=== PATIENT | female | born 2000 | race Caucasian/White ===

== ENCOUNTER 2020-01-03 18:13 | Emergency (ER) | payer MEDICAID, SELFPAY ==
[2020-01-03 18:25] VITALS: BP 126/75; PULSE 98; RESP 18; TEMP 37.3; O2SAT 99; BMI 23.7
[2020-01-03 18:49] LABS: Basophils # 0.1 10^3/uL (0.0-0.1); Basophils % 0.5 %; Eosinophils # 0.1 10^3/uL (0.0-0.8); Hematocrit 42.8 % (37.0-47.0); Lymphocytes # 2.6 10^3/uL (0.8-4.8); Lymphocytes % 23.9 %; Mean Corpuscular HGB Conc 32.7 g/dL (30.0-36.0); Mean Corpuscular Hemoglobin 28.5 pg (28.0-34.0); Mean Platelet Volume 10.5 fL (7.4-10.4); Monocytes # 0.7 10^3/uL (0.2-0.9); Monocytes % 6.1 %; Neutrophils # 7.45 10^3/uL (1.8-7.7); Neutrophils % 68.3 %; Nucleated Red Blood Cells % 0 %; Platelet Count 289 10^3/cmm (130-400); Red Blood Count 4.92 10^6/uL (4.1-5.3); Red Cell Distribution Width 13.2 % (12.1-15.1); White Blood Count 10.9 10^3/uL (4.0-10.0)
[2020-01-03] MEDS: sodium chloride 0.9% 1,000 ML 999 ML IV (18:59)
--- NOTE | 2020-01-03 19:01 | US_ITS ---
WS: [id number] ULTRASOUND EARLY TECHNIQUE: Transabdominal sonography of the pelvis was performed. Followed by transvaginal sonography to better evaluate the uterus and ovaries. CLINICAL INFORMATION: vaginal bleeding, preg LMP: 10/23/2019 Beta hCG: Unknown. COMPARISON: None. FINDINGS: UTERUS AND GESTATIONAL SAC Intrauterine gestations: Estimated gestational age: 7w0d Estimated delivery August 21, 2020 Yolk sac present [place] rump length (CRL): 1.0 cm. heart motion: 167 BPM. Subchorionic hemorrhage: None. OVARIES Right ovary: Normal. Left ovary: Normal. FREE FLUID None. US/US OB <= 14 weeks fetus [id number] IMPRESSION: 1. Single live intrauterine . 2. Estimated gestational age; 7w0d. Estimated delivery August 21, 2020 3. Normal adnexa
[2020-01-03 19:09] LABS: Add Urine Microscopic? YES; Bilirubin Urine Neg (NEGATIVE); Blood Urine Neg (Negative); Glucose Urine UA Norm (Normal); Ketones Urine Negative (Negative); Leukocyte Esterase Urine 2+ (Negative); Nitrate Urine Negative (Negative); Protein Urine Neg (Negative); Urine Color Yellow (Yellow); Urobilinogen Urine Norm (Negative); pH Urine 7 (5-7)
[2020-01-03 19:11] LABS: Bacteria Urine 2+; Mucus Urine 1+; Squamous Epithelial Cell Urine 15-25 (0-5); WBC Urine 15-25 /hpf (0-5)
[2020-01-03 19:12] LABS: Add Urine Culture? No
[2020-01-03 19:15] LABS: Alanine Aminotransferase 13 U/L (0-33); Albumin Level 4.1 g/dL (3.5-5.2); Alkaline Phosphatase 65 IU/L (35-105); Anion Gap 13.6 (5-19); Aspartate Amino Transferase 13 U/L (0-32); Blood Urea Nitrogen 7 mg/dL (6-20); Calcium 8.6 mg/dL (8.5-10.5); Carbon Dioxide 22 mmol/L (22-29); Chloride 100 mmol/L (98-107); Globulin 3.3 g/dL (1.3-4.6); Glomerular Filtration Rate 126.2 mL/min (90-130); Glucose 115 mg/dL (65-115); Osmolality Calculated 271 mOsm/kg (285-295); Potassium 3.6 mmol/L (3.5-5.1); Sodium 132 mmol/L (136-145); Total Bilirubin 0.2 mg/dL (0.15-1.2); Total Protein 7.4 g/dL (6.6-8.7)
--- NOTE | 2020-01-03 19:32 | W.ED.ABDPA2 ---
HPI - Abdominal Pain General: Chief Complaint: Abdominal Pain Stated Complaint: 12 weeks preg/cramping and bleeding Time Seen by Provider: 01/03/20 18:27 History of Present Illness: HPI narrative: 19-year-old female, believes she is 12 weeks , states she has been cramping for a week or so. She has a G3. She had cramping with her first , so she did not think much of it. She then began to bleed just a bit tonight. She passed 1 small clot with some small amounts of bright blood. Not bleeding currently. MD elicited complaint: abdominal pain Location: Pelvis and Other (Back) Severity: moderate Quality: cramping Radiation: none Migration to: no migration Relieving factors: nothing Associated Symptoms: Reports nausea; Denies dysuria, fever(s), loose stools and vomiting Related Data: Date of Last Menstrual Period: 11/10/19 Review of Systems Const: Denies: fever(s) Eyes: Denies: change in vision or blurry vision ENMT: Denies: swelling of lips/tongue, bleeding gums, change in hearing, post nasal drip or sinus pain Card: Denies: chest pain, palpitations or irregular heart rhythm Resp: Denies: dyspnea, productive cough, non-productive cough or wheezing GI: Reports: nausea; Denies: vomiting : Denies: dysuria Musc: Reports: back pain; Denies: neck pain Skin/Breast: Denies: rash or erythema Neuro: Denies: headache(s), dizziness or vertigo Psych: Denies: anxiety [facility] Female Reproductive History: Date of last menstrual period: 11/10/19 Physical Exam Const: GENERAL APPEARANCE: well developed ORIENTATION/CONSCIOUSNESS: Yes oriented to person, Yes oriented to place and Yes oriented to time HENMT: COMMON NORMALS: normocephalic, external ears normal and Normal external nose present HEAD & SCALP: normocephalic FACE & SINUS: normal facial exam NOSE: Normal external nose present and No nasal discharge present EXTERNAL EAR: Yes external ears normal Eye: COMMON NORMALS: Equal, round and reactive pupils present, EOMs intact bilaterally and conjunctivae normal EYELID: eyelids normal CONJUNCTIVA: Yes conjunctivae normal PUPIL: Yes Equal, round and reactive pupils present Neck/C-Spine: GENERAL: No tracheal deviation Chest: COMMONS NORMALS: normal inspection of the chest CHEST: No tenderness Resp: COMMON NORMALS: clear to auscultation bilaterally EFFORT & INSPECTION: No tachypneic, No respiratory distress, No retractions, No uses accessory muscles and No tracheal deviation AUSCULTATION: clear to auscultation bilaterally, no rhonchi, no wheezes and lung sounds not diminished Cardio: COMMON NORMALS: regular rate and regular rhythm RATE: regular rate RHYTHM: regular rhythm HEART SOUNDS: no murmurs PERIPHERAL PULSES: radial pulses present GI: INSPECTION: No abdominal distension AUSCULTATION: No Hyperactive bowel sounds present and No Hypoactive bowel sounds present PALPATION: No Tenderness to palpation present (GI), No Guarding due to palpation present (GI) and No Rigid due to palpation PERCUSSION: no dullness to percussion and no tympanic to percussion Neuro: SENSORIUM/ORIENTATION: Yes oriented to person, Yes oriented to place and Yes oriented to time Psych: COMMON NORMALS: mental status grossly normal Skin: COMMON NORMALS: no rashes or lesions noted GENERAL SKIN EXAM: no rashes or lesions noted Course Vital Signs: Vital signs: Vital Signs Temperature 99.1 F 01/03/20 18:25 Pulse Rate 72 01/03/20 20:53 Respiratory Rate 18 01/03/20 20:53 Blood Pressure 128/67 01/03/20 20:53 Pulse Oximetry 98 01/03/20 20:53 MDM - Abdominal Pain MDM Narrative: Medical decision making narrative: 19-year-old female with small amount of vaginal bleeding, and cramping. White blood cell count is 10.9. Hemoglobin 14. Other labs are benign. She is received a liter of fluid. Her urinalysis is slightly contaminated, but appears to show cystitis. She is given a gram of Rocephin. She will be treated for this. He has follow-up appointment with her mechanical systems engineer in 2 days. Lab Data: Labs: Lab Results 01/03/20 01/03/20 01/03/20 Range/Units 18:20 18:20 18:20 WBC 10.9 H (4.0-10.0) 10^3/ uL RBC 4.92 (4.1-5.3) 10^6/u L Hgb 14.0 (11.5-15.3) g/dL Hct 42.8 (37.0-47.0) % MCV 87.0 (81-99) fL MCH 28.5 (28.0-34.0) pg MCHC 32.7 (30.0-36.0) g/dL RDW 13.2 (12.1-15.1) % Plt Count 289 (130-400) 10^3/c mm MPV 10.5 H (7.4-10.4) fL Neut % (Auto) 68.3 % Lymph % (Auto) 23.9 % Arthur % (Auto) 6.1 % Eos % (Auto) 1.0 % Baso % (Auto) 0.5 % Neut # (Auto) 7.45 (1.8-7.7) 10^3/u L Lymph # (Auto) 2.6 (0.8-4.8) 10^3/u L Arthur # (Auto) 0.7 (0.2-0.9) 10^3/u L Eos # (Auto) 0.1 (0.0-0.8) 10^3/u L Baso # (Auto) 0.1 (0.0-0.1) 10^3/u L Nucleated RBC % (a uto) 0 % Nucleated RBCs # 0.0 /100WBC Sodium 132 L (136-145) mmol/L Potassium 3.6 (3.5-5.1) mmol/L Chloride 100 (98-107) mmol/L Carbon Dioxide 22 (22-29) mmol/L Anion Gap 13.6 (5-19) BUN 7 (6-20) mg/dL Creatinine 0.6 (0.5-0.9) mg/dL GFR Calculation 126.2 (90-130) mL/min Glucose 115 (65-115) mg/dL Calculated Osmolal ity 271 L (285-295) mOsm/k g Calcium 8.6 (8.5-10.5) mg/dL Total Bilirubin 0.2 (0.15-1.2) mg/dL AST 13 (0-32) U/L ALT 13 (0-33) U/L Alkaline Phosphata se 65 (35-105) IU/L Total Protein 7.4 (6.6-8.7) g/dL Albumin 4.1 (3.5-5.2) g/dL Globulin 3.3 (1.3-4.6) g/dL Ser , [place]Qnt 56397.00 mIU/mL Urine Color (Yellow) Urine Appearance (CLEAR) Urine pH (5-7) Ur Specific Gravit y (1.005-1.030) Urine Protein (Negative) Urine Glucose (UA) (Normal) Urine Ketones (Negative) Urine Blood (Negative) Urine Nitrate (Negative) Urine Bilirubin (NEGATIVE) Urine Urobilinogen (Negative) mg/dL Ur Leukocyte Yessenia ase (Negative) Urine RBC (0-2) /hpf Urine WBC (0-5) /hpf Ur Squamous Epith Cells (0-5) Amorphous Sediment Urine Bacteria (NONE) Urine Mucus Blood Type A Positive Rho(D) Type Positive 01/03/20 Range/Units 18:30 WBC (4.0-10.0) 10^3/ uL RBC (4.1-5.3) 10^6/u L Hgb (11.5-15.3) g/dL Hct (37.0-47.0) % MCV (81-99) fL MCH (28.0-34.0) pg MCHC (30.0-36.0) g/dL RDW (12.1-15.1) % Plt Count (130-400) 10^3/c mm MPV (7.4-10.4) fL Neut % (Auto) % Lymph % (Auto) % Arthur % (Auto) % Eos % (Auto) % Baso % (Auto) % Neut # (Auto) (1.8-7.7) 10^3/u L Lymph # (Auto) (0.8-4.8) 10^3/u L Arthur # (Auto) (0.2-0.9) 10^3/u L Eos # (Auto) (0.0-0.8) 10^3/u L Baso # (Auto) (0.0-0.1) 10^3/u L Nucleated RBC % (a uto) % Nucleated RBCs # /100WBC Sodium (136-145) mmol/L Potassium (3.5-5.1) mmol/L Chloride (98-107) mmol/L Carbon Dioxide (22-29) mmol/L Anion Gap (5-19) BUN (6-20) mg/dL Creatinine (0.5-0.9) mg/dL GFR Calculation (90-130) mL/min Glucose (65-115) mg/dL Calculated Osmolal ity (285-295) mOsm/k g Calcium (8.5-10.5) mg/dL Total Bilirubin (0.15-1.2) mg/dL AST (0-32) U/L ALT (0-33) U/L Alkaline Phosphata se (35-105) IU/L Total Protein (6.6-8.7) g/dL Albumin (3.5-5.2) g/dL Globulin (1.3-4.6) g/dL Ser , Otilia i-Qnt mIU/mL Urine Color Yellow (Yellow) Urine Appearance Sl cloudy A (CLEAR) Urine pH 7 (5-7) Ur Specific Gravit y 1.010 (1.005-1.030) Urine Protein Neg (Negative) Urine Glucose (UA) Norm (Normal) Urine Ketones Negative (Negative) Urine Blood Neg (Negative) Urine Nitrate Negative (Negative) Urine Bilirubin Neg (NEGATIVE) Urine Urobilinogen Norm (Negative) mg/dL Ur Leukocyte Yessenia ase 2+ H (Negative) Urine RBC None (0-2) /hpf Urine WBC 15-25 H (0-5) /hpf Ur Squamous Epith Cells 15-25 H (0-5) Amorphous Sediment Not Reportable Urine Bacteria 2+ H (NONE) Urine Mucus 1+ Blood Type Rho(D) Type Discharge Plan Discharge Patient Disposition: Home Clinical Impression: Urinary tract infection affecting , Threatened Condition: Stable Prescriptions: New cefdinir 300 mg capsule 300 mg PO BID Qty: 14 RF: 0 Discharge Orders: Discharge Order (Routine); Ordered 01/03/20 Ordered By: Breezy Strickland Referrals: Katarzyna Osborne MD [Primary Care Provider] - Selvin Valentine MD [Physician] - 4-7 days Discharge Diet: Advance as tolerated Discharge Activity: Limit activity as instructed Patient Instructions: Threatened Miscarriage (ED), Urinary Tract Infection in Women (ED) Activity Restrictions/Additional Instructions: Return for worsening vaginal bleeding, soaking 1 pad per hour for more than 3 hours, vomiting liquids or medications, fever greater than 100, other concerning symptoms. Antibiotics as directed. Make sure you are getting plenty of fluids. Discharge Date/Time: 01/03/20 20:55 Coding Level of Care Code ED Welt Trimming Machine Operator for Chg Fwd Exam Comprehensive
[2020-01-03 20:53] VITALS: BP 128/67; PULSE 72; RESP 18; O2SAT 98
== END 2020-01-03 20:55 | disposition home or self-care (01) ==
LOC: ER 20:18
PROVIDERS: Emergency Provider Emergency Medicine; PCP Family Medicine
DX: O23.41 Unspecified infection of urinary tract in pregnancy, first trimester (principal); Z3A.12 12 weeks gestation of pregnancy; O20.0 Threatened abortion
CPT/HCPCS: 12345; 36415; 76801; 80053; 81001; 84702; 85025; 86900; 96365; 99282; 99283; J7030

== ENCOUNTER 2020-07-13 12:32 | Outpatient (CLI) | payer MEDICAID, SELFPAY ==
[2020-07-13 12:51] VITALS: TEMP 36.8
[2020-07-13 12:52] VITALS: BP 122/65; PULSE 111
[2020-07-13 13:00] VITALS: RESP 18; TEMP 36.5; BMI 29.1
[2020-07-13 13:09] VITALS: BP 123/69; PULSE 109
[2020-07-13 13:22] VITALS: BP 116/69; PULSE 100
[2020-07-13 13:37] VITALS: BP 116/69; PULSE 100; RESP 18; TEMP 36.5
== END 2020-07-13 13:30 | disposition home or self-care (01) ==
LOC: OPOB 12:36 → OBGYN 12:47
PROVIDERS: PCP Family Medicine; Visit Provider Family Medicine
DX: O36.8190 Decreased fetal movements, unspecified trimester, not applicable or unspecified (principal); Z3A.00 Weeks of gestation of pregnancy not specified
CPT/HCPCS: 59025; 99211

== ENCOUNTER 2020-07-15 21:24 | Outpatient (CLI) | payer BC, MEDICAID, SELFPAY ==
[2020-07-15 21:24] VITALS: BMI 29.5
[2020-07-15 22:12] VITALS: BP 109/59; PULSE 88
[2020-07-15 22:13] VITALS: TEMP 35.9
[2020-07-15 22:20] VITALS: RESP 18; TEMP 36.1
== END 2020-07-15 22:20 | disposition home or self-care (01) ==
PROVIDERS: PCP Family Medicine; Visit Provider Family Medicine
DX: O26.899 Other specified pregnancy related conditions, unspecified trimester (principal); Z3A.00 Weeks of gestation of pregnancy not specified; R10.9 Unspecified abdominal pain
CPT/HCPCS: 99211

== ENCOUNTER 2020-07-27 14:40 | Outpatient (CLI) | payer BC, MEDICAID, SELFPAY ==
[2020-07-27 14:56] VITALS: BP 125/76; PULSE 122
[2020-07-27 15:01] VITALS: TEMP 36.1
[2020-07-27 15:04] VITALS: RESP 18
[2020-07-27 15:22] VITALS: BP 119/71; PULSE 106
[2020-07-27 15:29] LABS: Nitrazine Paper, PH Negative
[2020-07-27 15:42] VITALS: BP 120/67; PULSE 103
[2020-07-27 15:53] VITALS: BP 121/71; PULSE 100
== END 2020-07-27 16:00 | disposition home or self-care (01) ==
LOC: OPOB 14:45 → OBGYN 14:46
PROVIDERS: PCP Family Medicine; Visit Provider Family Medicine
DX: O26.899 Other specified pregnancy related conditions, unspecified trimester (principal); Z3A.00 Weeks of gestation of pregnancy not specified; N89.8 Other specified noninflammatory disorders of vagina
CPT/HCPCS: 59025; 83986; 99211

== ENCOUNTER 2020-08-03 12:20 | Inpatient (IN) | payer BC, MEDICAID, SELFPAY ==
[2020-08-03] VITALS (77 sets, daily range): BP systolic 90–142; BP diastolic 50–86; PULSE 78–202; RESP 17–18; TEMP 35.9–37.5; O2SAT 81–97; BMI 29.5
[2020-08-03 13:18] LABS: Basophils # 0.1 10^3/uL (0.0-0.1); Basophils % 0.4 %; Eosinophils # 0.1 10^3/uL (0.0-0.8); Eosinophils % 0.8 %; Hematocrit 35.8 % (37.0-47.0); Hemoglobin 11.2 g/dL (11.5-15.3); Lymphocytes # 2.4 10^3/uL (0.8-4.8); Lymphocytes % 12.7 %; Mean Corpuscular HGB Conc 31.3 g/dL (30.0-36.0); Mean Corpuscular Hemoglobin 24.3 pg (28.0-34.0); Mean Corpuscular Volume 77.8 fL (81-99); Mean Platelet Volume 11.2 fL (7.4-10.4); Monocytes # 1.6 10^3/uL (0.2-0.9); Monocytes % 8.7 %; Neutrophils # 14.23 10^3/uL (1.8-7.7); Neutrophils % 76.9 %; Nucleated Red Blood Cells % 0 %; Platelet Count 304 10^3/cmm (130-400); Red Cell Distribution Width 14.6 % (12.1-15.1); White Blood Count 18.5 10^3/uL (4.0-10.0)
[2020-08-03 13:22] LABS: Amphetamines Screen Urine Negative (Negative); Barbiturates Screen Urine Negative (Negative); Benzodiazepines Screen Urine Negative (Negative); Cocaine Screen Urine Negative (Negative); Opiate Screen Urine Negative (Negative); PCP Screen Urine Negative (Negative); THC Screen Urine Negative (Negative)
[2020-08-03] MEDS: lactated ringers 1,000 ML 999 ML IV ×2 (14:22→15:34)
--- NOTE | 2020-08-03 14:49 | PC.NURSE ---
Dr Garrido notified of request for epidural placement
--- NOTE | 2020-08-03 15:46 | P.ANESASSM_ITS ---
Pre-Anesthetic Assessment Pre-Anesthetic Assessment: Height/Weight: Height 1.8 m Weight 96.162 kg Temp Pulse Resp BP Pulse Ox 97.5 F L 100 17 121/62 93 08/03/20 13:59 08/03/20 15:43 08/03/20 12:55 08/03/20 15:43 08/03/20 15:42 Preop Diagnosis: iup Proposed Procedure: epidural Familial anesthetic complications: None Was Beta Tiera taken within 24 hours: N/A Was Clonidine taken within 24 hours: N/A Last intake: 0800 Social: Social History: Tobacco and No alcohol Exam: Pre-Anes Outpt Exam: alert, oriented x 3, clear to auscultation bilaterally and regular rate & rhythm Airway: Cervical ROM: WNL MP: 3 Dentition: Full Metabolic: Metabolic: Morbid obesity Anesthetic Plan: ASA status: 2 Anesthesia: Regional (specify below) Risk of > 500 ml blood loss (7ml/kg in children): Yes, adequate IV access and fluids planned Meds/Allergies Current Medications: Current Medications Generic Name Dose Route Start Last Admin Trade Name Freq PRN Reason Stop Dose Admin Ropivacaine 200 mg in 100 mls @ 13 mls/hr 08/03/20 14:15 08/03/20 15:35 Naropin Premix EPIDURAL 13 mls/hr .[id number] GARETH Administration Lactated Ringer's 1,000 mls @ 999 m ls/hr 08/03/20 14:06 08/03/20 15:34 Lactated Ringers IV 999 mls/hr .Q1H1M PRN Administration See label comment s PFSH Anesthesia Female Reproductive History: Date of last menstrual period: 11/10/19 : 3 Data Anesthesia CBC & Chem 7: 08/03/20 12:30 Other Labs: Laboratory Results - last 48 hr 08/03/20 08/03/20 12:30 12:30 WBC 18.5 H RBC 4.60 Hgb 11.2 L Hct 35.8 L MCV 77.8 L MCH 24.3 L MCHC 31.3 RDW 14.6 Plt Count 304 MPV 11.2 H Neut % (Auto) 76.9 Lymph % (Auto) 12.7 [place]kin % (Auto) 8.7 Eos % (Auto) 0.8 Baso % (Auto) 0.4 Neut # (Auto) 14.23 H Lymph # (Auto) 2.4 [place]kin # (Auto) 1.6 H Eos # (Auto) 0.1 Baso # (Auto) 0.1 Nucleated RBC % (auto) 0 Nucleated RBCs # 0.0 Urine Opiates Screen Negative Ur Barbiturates Screen Negative Ur Phencyclidine Scrn Negative Ur Amphetamines Screen Negative U Benzodiazepines Scrn Negative Urine Cocaine Screen Negative U Marijuana (THC) Screen Negative Cardiac Studies: No Data to Display
--- NOTE | 2020-08-03 15:47 | ANES.PROC ---
Anesthesia Procedures Procedure/Date: 08/03/20 Epidural: Time Out Performed: Yes Consents Signed: Procedure Consent, NPO Consent and No Consent Needed Lumbar Level: L2-L3 Epidural position: sitting Epidural procedure: sterile prep of area, 1% lidocaine to numb the area, 18 g needle, negative for paresthesia passed, neg for paresthesia, test dose given, 1.5% xylocaine 1:200k epi (5 cc divided dose), 0.2% Ropivacaine bolus ml (5 ml), placed PCEA, no systemic response, sterile dressing applied, L.U.D. no apparent complications (systolics 98 after bolus, improved with fluid bolus and PIA) and 0.2% Ropiavacaine @ mls/hr Additional Comments: 3rd attempt at L2/3 with VANDANA to saline at 7 cm, threaded catheter to 13 cm. Subsequent painfree contractions.
[2020-08-03] MEDS: oxytocin 30 UNIT/500 ML BAG IV (16:21)
[2020-08-03] MEDS: ondansetron 2 mg/ML SDV 2 mL 4 MG IVP (16:46)
[2020-08-03] MEDS: dextrose 5%-lactated ringers 1,000 ML 125 ML IV (16:47)
--- NOTE | 2020-08-03 20:52 | PM.DELIVERY ---
Delivery Note: Date of delivery: August 03, 2020 Pre-delivery diagnoses: 19-year-old 3 para 1-0-1-1 with an estimated gestational age of 39 weeks presenting with spontaneous rupture of membranes Post-delivery diagnoses: Status post spontaneous vaginal delivery Procedure: Spontaneous vaginal delivery Op report anesthesia: Epidural Delivering Physician: Selvin Valentine Estimated blood loss (mL): 100 Pre-Delivery Course: The patient presented to the hospital with spontaneous rupture membranes just prior to arrival to the hospital. After being in the hospital for a couple of hours of not having change in her cervix, or consistent contractions, the decision was made to initiate Pitocin. An epidural was placed. The patient progressed to complete without difficulty. Her was unremarkable. She was THC positive x1. Her blood type was A+. Her glucose screen was negative. Her Covid and GBS status are negative. Remainder of her labs were within normal limits. Delivery: DELIVERY: The patient progressed to complete without difficulty. She delivered a male with a weight of 8 pounds 7 ounces with Apgars of 8, 9. The baby was delivered from the MIKE position and placed on the mother's abdomen. The cord was then clamped and cut. There was no nuchal cord. There was no meconium. The placenta and 3 vessel cord were delivered intact shortly thereafter. The perineum and vaginal vault were carefully examined. No lacerations were noted. Both the mother and the baby were in stable condition. Post-Delivery Status: Good Coding Level of Care Code Acute Tool Grinder Operator Surface for Jeremy Wheat
[2020-08-03] MEDS: ibuprofen 800 mg tablet PO (21:55)
[2020-08-04] VITALS (15 sets, daily range): BP systolic 111–124; BP diastolic 55–71; PULSE 73–98; RESP 17–18; TEMP 35.7–37.3
[2020-08-04] MEDS: lanolin oint 7 gm 1 APPLIC TOPICAL (04:28)
[2020-08-04] MEDS: HYDROcodone-acetaminophen 5-325 mg Tablet PO ×2 (04:28→18:42)
[2020-08-04] MEDS: benzocaine-menthol 78 gm Canister 1 SPRAY TOPICAL ×2 (04:29→21:47)
[2020-08-04] MEDS: docusate sodium 100 mg Capsule PO ×2 (08:59→17:49)
[2020-08-04] MEDS: prenatal vitamin Capsule 1 CAP PO (08:59)
[2020-08-04] MEDS: ibuprofen 800 mg tablet PO ×3 (08:59→21:48)
[2020-08-04 09:27] LABS: Hematocrit 33.4 % (37.0-47.0); Hemoglobin 10.6 g/dL (11.5-15.3); Mean Corpuscular HGB Conc 31.7 g/dL (30.0-36.0); Mean Corpuscular Hemoglobin 24.8 pg (28.0-34.0); Mean Platelet Volume 11.1 fL (7.4-10.4); Platelet Count 277 10^3/cmm (130-400); Red Blood Count 4.28 10^6/uL (4.1-5.3); Red Cell Distribution Width 14.7 % (12.1-15.1); White Blood Count 25.5 10^3/uL (4.0-10.0)
--- NOTE | 2020-08-04 11:57 | P.DS_ITS ---
Discharge Providers LEAD MILITARY ANALYST Date of Admission: 08/03/20 12:20 Date of Discharge: 08/04/20 Attending Provider at Admission: Selvin Valentine MD Attending Provider at Discharge: Selvin Valentine MD Primary Care Provider: Selvin Valentine Diagnoses at Discharge Discharge Diagnosis (1) Spontaneous vaginal delivery: Status: Acute (2) 39 weeks gestation of : Status: Acute Reason for Visit Reason for Visit: vaginal discharge Hospital Course Hospital Course The patient presented to the hospital with spontaneous rupture of membranes. She was not making significant change and her contractions were not consistent. As result she was placed on Pitocin. An epidural was placed. She progressed to complete without difficulty. She had an unremarkable vaginal delivery of a healthy-appearing male infant. Her course was also unremarkable. Her bleeding was within normal limits. Her pain was well controlled. There were no concerns. Information Peripartum Data: Infant Delivery Method: Vaginal Physical Exam Narrative: EXAM NARRATIVE: The patient is alert. She appears comfortable. Her heart has a regular rate and rhythm with no murmurs appreciated. Lungs are clear to auscultation bilaterally. Her fundus is firm and below the umbilicus. Urinary Catheter Management^: Lovell: Cath Placed During This Visit: yes Reason for Continuing Indwelling Catheter: Acute Urinary Retention or Obstruction Urinary Catheter Date of Insertion: 08/03/20 Urinary Catheter Time of Insertion: 16:10 Discharge Data Data Completed and Pending: Labs from last 24 hours 08/04/20 08/03/20 08/03/20 09:05 12:30 12:30 WBC 25.5 H 18.5 H RBC 4.28 4.60 Hgb 10.6 L 11.2 L Hct 33.4 L 35.8 L MCV 78.0 L 77.8 L MCH 24.8 L 24.3 L MCHC 31.7 31.3 RDW 14.7 14.6 Plt Count 277 304 MPV 11.1 H 11.2 H Neut % (Auto) 76.9 Lymph % (Auto) 12.7 Wagoner % (Auto) 8.7 Eos % (Auto) 0.8 Baso % (Auto) 0.4 Neut # (Auto) 14.23 H Lymph # (Auto) 2.4 [place]agoner # (Auto) 1.6 H Eos # (Auto) 0.1 Baso # (Auto) 0.1 Nucleated RBC % (a uto) 0 Nucleated RBCs # 0.0 Urine Opiates Scre en Negative Ur Barbiturates Sc reen Negative Ur Phencyclidine S crn Negative Ur Amphetamines Sc reen Negative U Benzodiazepines Scrn Negative Urine Cocaine Scre en Negative U Marijuana (THC) Screen Negative Vitals: Last Vital Signs Temp 98.4 F 08/04/20 05:59 Pulse 93 08/04/20 06:00 Resp 18 08/03/20 17:11 BP 119/64 08/04/20 06:00 Pulse Ox 91 08/03/20 15:53 Discharge Plan Discharge Patient Disposition: Home Condition: Stable Prescriptions: New ibuprofen 800 mg Tablet 800 mg PO TID Qty: 30 RF: 0 Continued sertraline [Zoloft] 25 mg Tablet 25 mg PO DAILY RF: 0 prenat.vits,gricelda,[id number] Tablet 1 tab PO DAILY RF: 0 Discontinued calcium carbonate [Tums] 200 mg calcium (500 mg) Tablet,Chewable 200 mg PO QID RF: 0 Discharge Orders: Discharge Order (Routine); Ordered 08/04/20 Ordered By: Selvin Valentine Referrals: Selvin Valentine MD [Physician] - 6 Weeks Discharge Diet: Usual diet Discharge Activity: Limit activity as instructed Discharge Attestations LEAD MILITARY ANALYST Time Spent in Discharge Care*: less than 30 min Coding Level of Care Code Acute Data Analyst for Chg Fwd Diagnoses Spontaneous vaginal delivery O80 39 weeks gestation of Z3A.39
== END 2020-08-04 22:15 | disposition home or self-care (01) | DRG 807 ==
LOC: OPOB 13:42 → OBGYN 13:42
PROVIDERS: Admitting Provider Family Medicine; PCP Family Medicine; Visit Provider Family Medicine
DX: O99.334 Smoking (tobacco) complicating childbirth (principal); Z37.0 Single live birth; F17.210 Nicotine dependence, cigarettes, uncomplicated; O99.324 Drug use complicating childbirth; F12.90 Cannabis use, unspecified, uncomplicated; Z3A.39 39 weeks gestation of pregnancy
CPT/HCPCS: 12345; 36415; 51702; 59025; 59409; 80306; 83986; 85025; 85027; 98960; 99211; J2405; J2795

== ENCOUNTER 2021-09-19 13:41 | Emergency (ER) | payer BC, MEDICAID, SELFPAY ==
[2021-09-19 13:58] VITALS: BP 119/77; PULSE 72; RESP 14; TEMP 36.3; O2SAT 100
--- NOTE | 2021-09-19 15:02 | US_ITS ---
WS: [id number] ULTRASOUND SOFT TISSUES LEFT hip. HISTORY: knot near anterior L hip COMPARISON: None available. TECHNIQUE: 2-D and color Doppler imaging is submitted. Palpable area over the LEFT hip corresponds to edema in the soft tissues. No mass. This is a very colindres ited evaluation of the hip. This is a very superficial evaluation with only the subcutaneous soft tis sues imaged. US/US soft tissue/extremity [id number] IMPRESSION: Subcutaneous edema corresponds to the palpable area. This is a very superficial examination and does not include deeper than 1 to 2 cm.
--- NOTE | 2021-09-19 15:03 | ED_ITS ---
HPI - General Adult General: Chief complaint: Extremity Problem,Nontraumatic Stated complaint: Left Hip pain with knot Time Seen by Provider: 09/19/21 14:49 Source: patient Mode of arrival: ambulatory Limitations: no limitations History of Present Illness: Patient is a nice 20-year-old female presents to ED today with a complaint of a knot to the anterior aspect of her left hip that she has noticed over the past few days. Patient denies any injury or trauma. Denies any color changes or skin lesions to the overlying skin. She was told this knot could be caused by her hip being dislocated she decided to come to the ED for evaluation. Again patient has not had any injury or trauma. She is ambulating on the extremity without any difficulty. Onset (ago): day(s) Severity: mild Relieving factors: none Exacerbating factors: none Associated symptoms: Reports no associated symptoms; Deny headache(s), malaise, nausea or vomiting Treatments prior to arrival: none Review of Systems Const: Denies: fever(s), chills, body aches, fatigue or malaise GI: Denies: abdominal pain, nausea, vomiting, diarrhea or change in bowel habits : Denies: flank pain, dysuria or hematuria Musc: Denies: neck pain, back pain, extremity pain, extremity swelling, joint pain, joint swelling, joint redness, joint warmth or limited range of motion Skin/Breast: Reports: other ( knot/lump near L hip) Neuro: Denies: headache(s), numbness in extremities, weakness in extremities, sensory changes or difficulty walking [facility] ED Female Reproductive History: Date of last menstrual period: 09/16/21 Physical Exam Const: COMMON NORMALS: no acute distress, average body habitus, patient oriented x3, no limitations, healthy appearing, alert and well nourished GENERAL APPEARANCE: cooperative ORIENTATION/CONSCIOUSNESS: Yes awake, Yes oriented to person, Yes oriented to place and Yes oriented to time GI: COMMON NORMALS: Normal to inspection, nondistended, normoactive bowel sounds present, Soft to palpation, non-tender, No hepatosplenomegaly present and no masses PALPATION: Yes Soft to palpation and Yes No hepatosplenomegaly present GI image (female): 1. pt has a 2-3cm subcutaneous lesion overlying/near her L ASIS; lesion does appear somewhat mobile; there is no overlying skin changes; DDx based on exam includes cyst, lipoma, etc Extremity: COMMON NORMALS: normal to inspection, full ROM, capillary refill normal, no joint enlargement, no clubbing, cyanosis or edema, no calf tenderness and no pedal edema GENERAL: Yes normal exam except as noted Neuro: COMMON NORMALS: patient oriented x3, moves all extremities, no focal m otor deficits, no sensory deficits noted and gait normal SENSORIUM/ORIENTATION: Yes alert, Yes oriented to person, Yes oriented to place and Yes oriented to time Skin: COMMON NORMALS: no rashes or lesions noted GENERAL SKIN EXAM: no rashes or lesions noted TRAUMA: no lacerations or abrasions Course Vital Signs: Vital signs: Vital Signs Temperature 97.4 F L 09/19/21 13:58 Pulse Rate 72 09/19/21 13:58 Respiratory Rate 14 09/19/21 13:58 Blood Pressure 119/77 09/19/21 13:58 Pulse Oximetry 100 09/19/21 13:58 MDM - General Adult Medical Decision Making I spoke to Dr. Gregory in regards to US. She felt area was most likely just edema/fibrinous band like tissue. She did not see any obvious mass/lesion. Nothing that looked like a cyst. Nothing with increased vascularity and ultimately US was very benign appearing. Possibly a lipoma? At this time I would have patient follow up with PCP if area continues to bother her or changes in any way. She is stable for DC from an ED standpoint. Lab Data Radiology Impressions Soft Tissue Ultrasound 09/19/21 15:02 IMPRESSION: Subcutaneous edema corresponds to the palpable area. This is a very superficial examination and does not include deeper than 1 to 2 cm. Discharge Plan Discharge Patient Disposition: Home Clinical Impression: Lesion of subcutaneous tissue Condition: Stable Prescriptions: No Action sertraline [Zoloft] 25 mg Tablet 25 mg PO DAILY 0RF prenat.vits,gricelda,[id number] Tablet 1 tab PO DAILY 0RF ibuprofen 800 mg Tablet 800 mg PO TID Qty: 30 0RF Discharge Orders: Discharge ED (Routine); Ordered 09/19/21 Ordered By: Eloisa Bowers Referrals: Katarzyna Osborne MD [Primary Care Provider] - Coding Level of Care Code ED Entertainment Production Professional for Chg Fwd Exam Detailed
== END 2021-09-19 16:47 | disposition home or self-care (01) ==
PROVIDERS: Emergency Provider Physician Assistant; PCP Family Medicine
DX: L98.9 Disorder of the skin and subcutaneous tissue, unspecified (principal)
CPT/HCPCS: 76882; 99283

== ENCOUNTER 2021-12-15 09:01 | Outpatient (CLI) | payer BC, MEDICAID, SELFPAY ==
--- NOTE | 2021-12-15 09:07 | US_ITS ---
WS: [id number] OB ultrasound, 12/15/2021 Clinical Data: VAGINAL BLEEDING IN PREG 1ST TRIMESTER Comparison: None. Findings: There is a single interuterine . heart rate is 144 beats per minute. There is a 0.36 cm yolk sac present. The crown-rump length measured 1.5 cm. The estimated gestational age 7w6d is with an GARRET of approximately 07/28/2022. The left ovary measured 2.5 cm x 2.5 cm x 1.9 cm. The right ovary measured 2.3 cm x 3.6 cm x 2.7 cm. No ovarian cyst or masses are seen. US/US OB <= 14 weeks fetus [id number] Impression: 1. Single interuterine . 2. Estimated gestational age of 7w6d with an GARRET of 07/28/2022. 3. heart rate 144 beats per minute.
== END 2021-12-15 09:02 | disposition home or self-care (01) ==
LOC: RAD 09:01
PROVIDERS: PCP Family Medicine; Visit Provider Family Medicine
DX: O20.9 Hemorrhage in early pregnancy, unspecified (principal); Z3A.01 Less than 8 weeks gestation of pregnancy
CPT/HCPCS: 76801

== ENCOUNTER 2022-03-13 15:52 | Outpatient (CLI) | payer BC, MEDICAID, SELFPAY ==
[2022-03-13 16:14] VITALS: BMI 21.2
[2022-03-13 17:00] LABS: Bilirubin Urine Neg (Negative); Blood Urine Neg (Negative); Glucose Urine UA Norm (Normal); Ketones Urine 3+ (Negative); Nitrate Urine Negative (Negative); Protein Urine Neg (Negative); Urine Appearance Cloudy (CLEAR); Urine Color Yellow (Yellow); Urobilinogen Urine 1 mg/dL (Negative); pH Urine 7 (5-7)
[2022-03-13 17:01] LABS: Add Urine Culture? No; Bacteria Urine 4+ /hpf; Leukocyte Esterase Urine 2+ (Negative); RBC Urine 0-4 /hpf (0-2); Squamous Epithelial Cell Urine TOO NUMEROUS TO CNT /hpf (0-5); WBC Urine >100 /hpf (0-5)
--- NOTE | 2022-03-13 17:17 | PC.NURSE ---
prescription for keflex 500mg TIDx7 days called to missael singh at this time per patient's request.
[2022-03-13 17:18] VITALS: BP 115/68; PULSE 82; RESP 16; TEMP 36.8; O2SAT 99
== END 2022-03-13 17:15 | disposition home or self-care (01) ==
LOC: OPOB 15:53 → OBGYN 16:11
PROVIDERS: PCP Family Medicine; Visit Provider Family Medicine
DX: O36.8190 Decreased fetal movements, unspecified trimester, not applicable or unspecified (principal); Z3A.00 Weeks of gestation of pregnancy not specified; R10.9 Unspecified abdominal pain
CPT/HCPCS: 81001; 87086; 99211

== ENCOUNTER 2022-04-08 23:15 | Outpatient (CLI) | payer BC, MEDICAID, SELFPAY ==
[2022-04-08 23:54] VITALS: PULSE 75; RESP 16; TEMP 35.9; BMI 22.8
[2022-04-08 23:59] VITALS: BP 121/65; PULSE 66
== END 2022-04-09 00:21 | disposition home or self-care (01) ==
LOC: OPOB 23:26 → OBGYN 23:36
PROVIDERS: PCP Family Medicine; Visit Provider Family Medicine
DX: O36.8190 Decreased fetal movements, unspecified trimester, not applicable or unspecified (principal); Z3A.00 Weeks of gestation of pregnancy not specified
CPT/HCPCS: 99211

== ENCOUNTER 2022-04-21 07:30 | Outpatient (CLI) | payer BC, MEDICAID, SELFPAY ==
[2022-04-21 07:36] VITALS: RESP 16
[2022-04-21 07:43] VITALS: BP 106/60; PULSE 89
[2022-04-21 07:54] VITALS: RESP 18
== END 2022-04-21 08:35 | disposition home or self-care (01) ==
LOC: OPOB 07:32 → OBGYN 07:33
PROVIDERS: PCP Family Medicine; Visit Provider Family Medicine
DX: O36.8190 Decreased fetal movements, unspecified trimester, not applicable or unspecified (principal); Z3A.00 Weeks of gestation of pregnancy not specified
CPT/HCPCS: 99211

== ENCOUNTER 2022-06-23 20:50 | Outpatient (CLI) | payer BC, MEDICAID, SELFPAY ==
[2022-06-23 20:50] VITALS: RESP 16; BMI 25.2
[2022-06-23 20:57] VITALS: BP 116/71; PULSE 69
[2022-06-23 21:13] VITALS: BP 107/58; PULSE 68
[2022-06-23 21:27] VITALS: BP 110/63; PULSE 71
[2022-06-23 22:23] VITALS: BP 110/63; PULSE 71; RESP 16; TEMP 36.4
[2022-06-23] MEDS: acetaminophen 500 mg Tablet PO (22:23)
== END 2022-06-23 22:23 | disposition home or self-care (01) ==
LOC: OPOB 20:50 → OBGYN 20:51
PROVIDERS: PCP Family Medicine; Visit Provider Family Medicine
DX: O26.899 Other specified pregnancy related conditions, unspecified trimester (principal); Z3A.00 Weeks of gestation of pregnancy not specified; R10.9 Unspecified abdominal pain
CPT/HCPCS: 99211

== ENCOUNTER 2022-07-08 07:50 | Inpatient (IN) | payer BC, MEDICAID, SELFPAY ==
[2022-07-07] VITALS (9 sets, daily range): BP systolic 98–114; BP diastolic 55–67; PULSE 73–81; RESP 16; TEMP 36.1–36.5; BMI 25.5
[2022-07-07 21:11] LABS: Basophils # 0.1 10^3/uL (0.0-0.1); Basophils % 0.4 %; Eosinophils # 0.1 10^3/uL (0.0-0.8); Eosinophils % 0.9 %; Hemoglobin 12.6 g/dL (11.5-15.3); Lymphocytes # 2.9 10^3/uL (0.8-4.8); Mean Corpuscular HGB Conc 34.1 g/dL (30.0-36.0); Mean Corpuscular Hemoglobin 29.4 pg (28.0-34.0); Mean Corpuscular Volume 86.4 fl (81-99); Mean Platelet Volume 10.9 fL (7.4-10.4); Monocytes % 7.3 %; Neutrophils # 9.74 10^3/uL (1.8-7.7); Nucleated Red Blood Cells % 0 %; Platelet Count 249 10^3/cmm (130-400); Red Blood Count 4.28 10^6/uL (4.1-5.3); Red Cell Distribution Width 12.5 % (12.1-15.1); White Blood Count 13.9 10^3/uL (4.0-10.0)
[2022-07-07] MEDS: miSOPROStol 100 mcg tablet 25 MCG VAGINAL (21:30)
[2022-07-07] MEDS: calcium carbonate 500 mg Chew Tablet 1000 MG PO (22:18)
[2022-07-08] VITALS (38 sets, daily range): BP systolic 89–128; BP diastolic 50–77; PULSE 64–84; RESP 14–18; TEMP 35.8–36.7; O2SAT 95–100
[2022-07-08] MEDS: miSOPROStol 100 mcg tablet 25 MCG VAGINAL ×2 (01:36→05:38)
[2022-07-08] MEDS: morphine 4 mg/mL SDV 1 mL 8 MG IM (01:40)
[2022-07-08] MEDS: promethazine 25 mg/mL SDV 1 mL IM (01:40)
[2022-07-08] MEDS: oxytocin 30 UNIT/500 ML BAG IV (09:30)
[2022-07-08] MEDS: dextrose 5%-lactated ringers 1,000 ML 125 ML IV ×2 (09:30→21:31)
[2022-07-08] MEDS: fentaNYL 50 mcg/mL INJ 2mL IVP ×2 (10:41→13:05)
--- NOTE | 2022-07-08 12:33 | P.HP_ITS ---
Providers/Chief Complaint Admitting Physician: Selvin Valentine MD Primary Care Provider: Selvin Valentine Chief Complaint: IOL HPI SECOND STEWARD History of Present Illness Daniel Dennis is a 21 year old female 4 para 2-0-1-2 at 37 weeks estimated gestational age per first trimester ultrasound. 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 We have discussed in depth options availablle to her. We decided to proceed with an induction with Cytotec. Present Details : 4 Para: 2 Labs Rubella: Immune RPR: Negative GBS: Unknown Review of Systems General: Reports: 10 or more systems reviewed and unremarkable except in HPI and below Const: Reports: fatigue; Denies: fever(s) Eyes: Denies: change in vision Card: Denies: chest pain Musc: Reports: back pain Tyrone/Lymph: Denies: easy bruising Medications/Allergies Home Medications Medication Instructions Recorded Confirmed Last Taken Type prenat.vits,gricelda,ito-purg-mcdia 1 tab PO DAILY 07/15/20 07/07/22 07/07/22 History escitalopram oxalate 1 tab PO DAILY 07/07/22 07/07/22 07/07/22 History Allergies Allergy/AdvReac Type Severity Reaction Status Date / Time Sulfa (Sulfonamide Allergy ALGY-Anaphy Verified 07/07/22 22:15 Antibiotics) laxis PFSH SECOND STEWARD PFSH: Social History Smoking and tobacco status: current every day smoker Vitals/I&O/Wt Last Vital Signs Temp 96.4 F L 07/08/22 06:13 Pulse 73 07/08/22 06:14 Resp 16 07/08/22 10:41 BP 115/64 07/08/22 06:14 O2 Del Method 07/08/22 05:01 07/07/22 07/08/22 07/08/22 22:59 06:59 14:59 Intake Total 2500 / 2500 1.333 / 1.333 Balance 2500 / 2500 1.333 / 1.333 Weight last 48 hrs Weight 173 lb Weight 173 lb Physical Exam Const: COMMON NORMALS: patient oriented x3 and alert HENMT: COMMON NORMALS: moist oral mucous membranes HEAD & SCALP: normal to inspection Chest: COMMONS NORMALS: normal inspection of the chest Resp: COMMON NORMALS: clear to auscultation bilaterally AUSCULTATION: clear to auscultation bilaterally Cardio: COMMON NORMALS: regular rate and regular rhythm RATE: regular rate RHYTHM: regular rhythm GI: INSPECTION: Yes normal to inspection and Yes other (Gravid) Extremity: COMMON NORMALS: normal to inspection GENERAL: Yes edema (Trace) Neuro: COMMON NORMALS: patient oriented x3, moves all extremities and no sensory deficits noted SENSORIUM/ORIENTATION: Yes alert Psych: COMMON NORMALS: mental status grossly normal Skin: COMMON NORMALS: no rashes or lesions noted GENERAL SKIN EXAM: no rashes or lesions noted Data 07/07/22 20:34 A&P Assessment and plan (1) 37 weeks gestation of : (2) Anencephaly of fetus affecting wilson : We have discussed options multiple times. As we have discussed the options, she has made it clear that she wants us to do what ever we can within reason to have this baby born alive, and with respect. We had hoped that the patient would be able to be delivered breech. We discussed about the pros and cons of that. We also discussed what we would do for the footling breech both earlier this week and today. She has made it clear that she would rather have a rather than to have the risk that the baby will get caught in the canal possibly prior to delivery. We discussed the increased risk of a including risk of bleeding, infection, and damage intra-abdominal organs. The patient understands those risks and wishes to proceed with a We have also discussed the care of the baby after delivery. We have discussed resuscitation of the baby, and are in agreement that under no circumstances will we be doing resuscitation of the baby given its clear congenital abnormality that is incompatible with long-term life. Both the patient and her have agreed to that so there is not confusion if the baby does live longer than expected. May not live at all to delivery, but that it may also live for several days. (3) Footling breech presentation: Attestations Medical Necessity Statement*: I anticipate routine and post C- section care for the mother. Coding Level of Care Code Acute Code for Chg Fwd Diagnoses 37 weeks gestation of Z3A.37 Anencephaly of fetus affecting wilson O35.02X0 Footling breech presentation O32.8XX0
[2022-07-08] MEDS: ondansetron 2 mg/ML SDV 2 mL 4 MG IVP (13:25)
[2022-07-08] MEDS: citric acid-sodium citrate 30 mL UDC PO (13:29)
[2022-07-08] MEDS: famotidine 20 mg/2 mL INJ IVP (13:30)
[2022-07-08] MEDS: metoclopramide 5 mg/mL SDV 2 mL 10 MG IVP (13:30)
[2022-07-08] MEDS: ceFAZolin 2,000 MG in sodium chloride 0.9% (plus) 50 ML 100 MG IV (13:30)
--- NOTE | 2022-07-08 13:44 | ANES.PREANE2 ---
Pre-Anesthetic Assessment Height/Weight: Height 1.75 m Weight 78.471 kg Temp Pulse Resp BP O2 Del Method 96.4 F L 73 16 115/64 07/08/22 06:13 07/08/22 06:14 07/08/22 13:05 07/08/22 06:14 07/08/22 05:01 Preop Diagnosis: iup Familial anesthetic complications: none Last intake: > 8 hrs Social No alcohol and No tobacco THC Exam alert, oriented x 3, clear to auscultation bilaterally and regular rate & rhythm Airway Mallampati: Class II Dentition: full Anesthetic Plan ASA status: 2 Anesthesia: Regional (specify below) (spinal) Risk of > 500 ml blood loss (7ml/kg in children): Yes, adequate IV access and fluids planned Medications/Allergies Home Medications Medication Instructions Recorded Confirmed Last Taken Type prenat.vits,gricelda,nbj-milh-tfotz 1 tab PO DAILY 07/15/20 07/07/22 07/07/22 History escitalopram oxalate 1 tab PO DAILY 07/07/22 07/07/22 07/07/22 History Allergies Allergy/AdvReac Type Severity Reaction Status Date / Time Sulfa (Sulfonamide Allergy ALGY-Anaphy Verified 07/07/22 22:15 Antibiotics) laxis Current Medications Generic Name Dose Route Start Last Admin Trade Name Freq PRN Reason Stop Dose Admin Calcium Carbonate 1,000 mg 07/07/22 22:00 07/07/22 22:18 Calcium Carbonate 500 Mg Chew Tablet PO 1,000 mg Q4H PRN Administration HEARTBURN Fentanyl 25 - 100 mcg 07/07/22 21:09 07/08/22 13:05 Fentanyl 50 Mcg/Ml Inj 2ml IVP 50 mcg Q1H PRN Administration SEVERE PAIN Dextrose/Lactated Ringer's 1,000 mls @ 125 mls/hr 07/07/22 21:09 07/08/22 09:30 Dextrose 5%-Lactated Ringers IV 125 mls/hr .Q8H PRN Administration per label comments Oxytocin 30 unit in 500 mls @ 1 mls/hr 07/08/22 09:00 07/08/22 10:10 Pitocin IV 5 milliunit/min .Q24H GARETH 5 mls/hr Titration Protocol 1 MILLIUNIT/MIN Ondansetron HCl 4 mg 07/07/22 21:09 07/08/22 13:25 Ondansetron 2 Mg/Ml Sdv 2 Ml IVP 4 mg Q4H PRN Administration NAUSEA AND VOMITING PFSH Anesthesia Female Reproductive History : 4 Data Anesthesia 07/07/22 20:34 Short CBC 07/07/22 Range/Units 20:34 WBC 13.9 H (4.0-10.0) 10^3/uL Hgb 12.6 (11.5-15.3) g/dL Hct 37.0 (37.0-47.0) % MCV 86.4 (81-99) fl Plt Count 249 (130-400) 10^3/cmm Neut % (Auto) 70.0 % Neut # (Auto) 9.74 H (1.8-7.7) 10^3/uL Cardiac Studies: No Data to Display
--- NOTE | 2022-07-08 15:28 | PM.OP ---
Operative Report Date of procedure: July 08, 2022 Pre-op diagnosis: 37-week female with a footling breech anencephalic Post-op diagnosis: Status post lower transverse section Post-op findings: Status post lower transverse section of an anencephalic infant Procedure done: Lower transverse section Specimens removed/disposition: 1. Anencephalic infant 2. Placenta with a three-vessel cord delivered intact Surgeon: Selvin Valentine Anesthesia: Other (Spinal) Estimated blood loss (mL): 400 Procedure: The patient was brought back to the operating room where she was prepped and draped in usual sterile fashion. Anesthesia was found to be adequate. A lower transverse skin incision was then made with a #10 blade. I then dissected down to the underlying subcutaneous tissue until arriving at the prerectal fascia. The fascia was then nicked with the scalpel bilaterally. The fascial incisions were then carried laterally with Watkins scissors. Attention was then turned to the superior aspect of the incision which was grasped with kochers and tented up away from the underlying rectus abdominis muscles. The muscles were then dissected away from the fascia manually, and later with Watkins scissors. Attention was then turned to the inferior aspect of the incision, and the fascia was dissected away from the underlying muscle in similar fashion. The rectus abdominis muscles were then spread manually. The peritoneum was entered manually. Excellent visualization of the uterus was noted. A lower transverse uterine incision was then made with a #10 blade. Upon arriving at the intrauterine cavity, the uterine incision was then extended manually. The was noted to be in a footling breech position. There was no meconium. There was a body cord x1. The baby was delivered without difficulty. The cord was cut and clamped. The baby was then handed to the waiting nurse. Who then quickly handed the baby to the mother. The placenta was removed intact. The uterus was externalized. The intrauterine cavity was cleansed of any remaining debris. The uterine incision was reapproximated in 2 layers. The first layer was performed with 0 Vicryl in a running locked stitch. The second layer was an imbricating stitch also using 0 Vicryl. The uterus was replaced into the abdomen. The peritoneum was then irrigated with warm saline. I reexamined the uterine incision and found it to be hemostatic. The rectus abdominis muscles were then reapproximated using 0 Vicryl in a running stitch. The fascia was then reapproximated using 0 Vicryl in running stitch. The subcutaneous tissue was then reapproximated using 0 Vicryl in a running locked stitch. The skin was reapproximated using kobi. A sterile dressing was placed. All counts were correct x2. Both the mother and baby were in stable condition.
--- NOTE | 2022-07-08 16:00 | ANE.PACU2 ---
Inpatient post-anesthesia follow up: Airway intact: Yes Vital signs: Temperature 97.9 F Pulse Rate 66 Respiratory Rate 15 Blood Pressure 96/55 Pulse Oximetry 100 Oxygen Delivery Me thod Room Air Oxygen Flow Rate Fraction of Inspir ed Oxygen Hydration adequate: Yes Nausea and vomiting: No Pain level: 2 Mental status: Baseline
[2022-07-08] MEDS: HYDROcodone-acetaminophen 5-325 mg Tablet PO ×2 (16:16→20:14)
[2022-07-08] MEDS: diphenhydrAMINE 50 mg/mL SDV 1mL 25 MG IVP (20:13)
[2022-07-08] MEDS: ketorolac 30 mg/mL INJ IVP (21:32)
[2022-07-08] MEDS: ALPRAZolam 0.5 mg Tablet 0.25 MG PO (22:18)
[2022-07-09] VITALS (11 sets, daily range): BP systolic 78–111; BP diastolic 48–67; PULSE 55–78; TEMP 35.4–36.2
[2022-07-09] MEDS: HYDROcodone-acetaminophen 5-325 mg Tablet PO ×6 (00:18→21:52)
[2022-07-09] MEDS: ketorolac 30 mg/mL INJ IVP (04:18)
--- NOTE | 2022-07-09 04:32 | PM.OBGYPN ---
JET DYEING MACHINE OPERATOR Subjective Subjective: Interval history: The patient has been doing as well as could be expected since the delivery of her . She was given Xanax at the time the baby was brought away by the mortuary. Otherwise she has not received any other medication other than her baseline SSRI. Her bleeding has been within normal limits. Her vitals have been stable. She did pass gas x1. She did get some rest last night. Labor: Station: -3 Amniotic Membrane Status: Intact Monitor Mode: External Contraction Pattern: Irregular Status: Category I Vitals/I&O/Wt Last Vital Signs Temp 97.2 F L 07/09/22 01:11 Pulse 61 07/09/22 01:10 Resp 15 07/08/22 17:00 BP 102/58 07/09/22 01:10 Pulse Ox 100 07/08/22 17:00 O2 Del Method 07/08/22 17:00 07/08/22 07/08/22 07/09/22 14:59 22:59 06:59 Intake Total 1.333 / 1.333 Balance 1.333 / 1.333 Weight last 48 hrs Weight 173 lb Weight 173 lb Physical Exam Narrative: She is in no acute distress Lungs are clear auscultation bilaterally Her heart has a regular rate and rhythm Her fundus is below the umbilicus and firm Her dressing is clean, dry and intact Her extremities have trace edema Urinary Catheter Management: Lovell: Cath Placed During This Visit: yes Reason for Continuing Indwelling Catheter: Required Immobilization for Trauma or Surgery or Anesthesia Urinary Catheter Date of Insertion: 07/08/22 Urinary Catheter Time of Insertion: 14:35 Data 07/07/22 20:34 A&P Assessment and plan (1) Status post : The patient has been doing well medically. There have been no concerns. I anticipate we will discharge her home tomorrow if she continues to do well. We will continue to monitor her emotionally and give her any support that she may have interested in. (2) Anencephaly of fetus affecting wilson : Attestations Medical Necessity Statement*: Routine and post care. Coding Level of Care Code Acute Code for Chg Fwd Diagnoses Status post Z98.891 Anencephaly of fetus affecting wilson O35.02X0
[2022-07-09 05:26] LABS: Hematocrit 32.5 % (37.0-47.0); Mean Corpuscular HGB Conc 33.8 g/dL (30.0-36.0); Mean Corpuscular Hemoglobin 29.5 pg (28.0-34.0); Mean Corpuscular Volume 87.1 fl (81-99); Mean Platelet Volume 10.6 fL (7.4-10.4); Platelet Count 212 10^3/cmm (130-400); Red Blood Count 3.73 10^6/uL (4.1-5.3); Red Cell Distribution Width 12.6 % (12.1-15.1); White Blood Count 14.7 10^3/uL (4.0-10.0)
[2022-07-09] MEDS: escitalopram 10 mg Tablet 20 MG PO (08:29)
[2022-07-09] MEDS: ferrous sulfate EC 325 mg Tablet PO (08:30)
[2022-07-09] MEDS: prenatal vitamin Capsule 1 CAP PO (08:30)
[2022-07-09] MEDS: docusate sodium 100 mg Capsule PO ×2 (08:30→17:31)
[2022-07-09] MEDS: ibuprofen 800 mg tablet PO ×3 (11:05→21:51)
[2022-07-09] MEDS: ALPRAZolam 0.5 mg Tablet 0.25 MG PO (23:33)
[2022-07-10] MEDS: zolpidem 5 mg Tablet 10 MG PO (01:01)
[2022-07-10] MEDS: HYDROcodone-acetaminophen 5-325 mg Tablet PO ×2 (04:28→09:37)
[2022-07-10 04:30] VITALS: TEMP 36.5
[2022-07-10 04:31] VITALS: BP 111/63; PULSE 80
--- NOTE | 2022-07-10 07:30 | PM.OBGYDC ---
Discharge Providers TRANSPORTATION MAINTENANCE SPECIALIST Date of Admission: 07/08/22 07:50 Date of Discharge: 07/17/22 Attending Provider at Admission: Selvin Valentine MD Attending Provider at Discharge: Selvin Valentine MD Primary Care Provider: Katarzyna Osborne MD Diagnoses at Discharge Discharge Diagnosis (1) Status post : Status: Inactive (2) Anencephaly of fetus affecting wilson : Status: Inactive Reason for Visit Reason for Visit: IOL Hospital Course Hospital Course The patient presented to the hospital for induction of an anencephalic baby. Upon arrival she was noted to be footling breech. We have previously discussed the possibility of a footling breech, and had determined that she wanted to have a if this were to occur. We discussed the pros and cons of proceeding with a vaginal delivery versus section. The was unremarkable. Her course was also unremarkable. There were no complications. Her pain was well controlled. Her bleeding was within normal limits. Information Peripartum Data: Delivery Method: Physical Exam Narrative: She is in no acute distress Lungs are clear auscultation bilaterally Her heart has a regular rate and rhythm Her fundus is below the umbilicus and firm Her dressing is clean, dry and intact Her extremities have trace edema Urinary Catheter Management: Lovell: Cath Placed During This Visit: yes, but has since been removed by the nurse Reason for Continuing Indwelling Catheter: Required Immobilization for Trauma or Surgery or Anesthesia Urinary Catheter Date of Insertion: 07/08/22 Urinary Catheter Time of Insertion: 14:35 Date Urinary Catheter Removed: 07/09/22 Time Urinary Catheter Discontinued: 01:00 Discharge Data Studies Completed and Pending Laboratory Results WBC 14.7 10^3/uL (4.0-10.0) H 07/09/22 05:00 RBC 3.73 10^6/uL (4.1-5.3) L 07/09/22 05:00 Hgb 11.0 g/dL (11.5-15.3) L 07/09/22 05:00 Hct 32.5 % (37.0-47.0) L 07/09/22 05:00 MCV 87.1 fl (81-99) 07/09/22 05:00 MCH 29.5 pg (28.0-34.0) 07/09/22 05:00 MCHC 33.8 g/dL (30.0-36.0) 07/09/22 05:00 RDW 12.6 % (12.1-15.1) 07/09/22 05:00 Plt Count 212 10^3/cmm (130-400) 07/09/22 05:00 MPV 10.6 fL (7.4-10.4) H 07/09/22 05:00 Neut % (Auto) 70.0 % 07/07/22 20:34 Lymph % (Auto) 21.0 % 07/07/22 20:34 [place] % (Auto) 7.3 % 07/07/22 20:34 Eos % (Auto) 0.9 % 07/07/22 20:34 Baso % (Auto) 0.4 % 07/07/22 20:34 Neut # (Auto) 9.74 10^3/uL (1.8-7.7) H 07/07/22 20:34 Lymph # (Auto) 2.9 10^3/uL (0.8-4.8) 07/07/22 20:34 [place] # (Auto) 1.0 10^3/uL (0.2-0.9) H 07/07/22 20:34 Eos # (Auto) 0.1 10^3/uL (0.0-0.8) 07/07/22 20:34 Baso # (Auto) 0.1 10^3/uL (0.0-0.1) 07/07/22 20:34 Nucleated RBC % (auto) 0 % 07/07/22 20:34 Nucleated RBCs # 0.0 /100WBC 07/07/22 20:34 Vitals Last Vital Signs Temp 97.7 F 07/10/22 04:30 Pulse 80 07/10/22 04:31 Resp 15 07/08/22 17:00 BP 111/63 07/10/22 04:31 Pulse Ox 100 07/08/22 17:00 O2 Del Method 07/08/22 17:00 Discharge Plan Discharge Patient Disposition: Home Condition: Stable Prescriptions: New ibuprofen 800 mg Tablet 800 mg PO TID Qty: 45 0RF hydrocodone-acetaminophen 5-325 mg Tablet 1 tab PO Q6H PRN (Reason: Moderate To Severe Pain) Qty: 28 0RF docusate sodium 100 mg Capsule 100 mg PO BID Qty: 10 0RF clonazepam 0.5 mg tablet 0.5 mg PO DAILY PRN (Reason: anxiety) Qty: 10 0RF Ambien 10 mg tablet 10 mg PO .QHS PRN (Reason: insomnia) Qty: 14 0RF Rx Instructions: Do not take with Clonazepam Continued prenat.vits,gricelda,mpt-bawp-mibdo Tablet 1 tab PO DAILY escitalopram oxalate 1 tab PO DAILY Discharge Orders: Discharge Order (Routine); Ordered 07/10/22 Ordered By: Selvin Valentine Referrals: Selvin aVlentine MD [Physician] - 07/12/22 1:45 pm Discharge Diet: Usual diet Discharge Activity: Limit activity as instructed Patient Instructions: Hydrocodone/Acetaminophen (By mouth) (Vicodin, [place], Lortab), Clonazepam (By mouth) (KlonoPIN), Zolpidem (By mouth) (Ambien, Ambien CR, AmbienPAK, Gabazolpidem-5), Depression (GEN), Bleeding (GEN), OB - Meme/Seth, OB Discharge Report, OB Food/Drug Interaction Guide, OB Care at Home, Opioid Safety, OB Home Care, Abnormal Bleeding Discharge Attestations TRANSPORTATION MAINTENANCE SPECIALIST Time Spent in Discharge Care*: greater than 30 min Coding Level of Care Code Acute Code for Chg Fwd Diagnoses Status post Z98.891 Anencephaly of fetus affecting wilson O35.02X0
[2022-07-10] MEDS: ferrous sulfate EC 325 mg Tablet PO (07:52)
[2022-07-10] MEDS: ibuprofen 800 mg tablet PO (07:52)
[2022-07-10] MEDS: docusate sodium 100 mg Capsule PO (07:52)
[2022-07-10] MEDS: prenatal vitamin Capsule 1 CAP PO (07:52)
[2022-07-10] MEDS: escitalopram 10 mg Tablet 20 MG PO (09:37)
[2022-07-10 11:39] VITALS: BP 128/87; PULSE 90; TEMP 36.8
[2022-07-10 11:50] VITALS: BP 128/87; PULSE 90; RESP 17; TEMP 36.8
== END 2022-07-10 12:05 | disposition home or self-care (01) | DRG 788 ==
LOC: OBGYN 07:50
PROVIDERS: Admitting Provider Family Medicine; PCP Family Medicine; Visit Provider Family Medicine
PROC: 10D00Z1 Extraction of Products of Conception, Low, Open Approach (ICD-10-PCS; CPT 59514; principal; 2022-07-08 14:20)
DX: O32.8XX0 Maternal care for other malpresentation of fetus, not applicable or unspecified (principal); O99.334 Smoking (tobacco) complicating childbirth; Z3A.37 37 weeks gestation of pregnancy; Z37.0 Single live birth; O35.02X0 Maternal care for (suspected) central nervous system malformation or damage in fetus, anencephaly, not applicable or unspecified; O69.89X0 Labor and delivery complicated by other cord complications, not applicable or unspecified
CPT/HCPCS: 12345; 36415; 59409; 85025; 85027; 96372; 96374; 96376; J0690; J1200; J1885; J2270; J2274; J2405; J2550; J2590; J2765; J3010; J3490; J7121

== ENCOUNTER 2022-09-15 23:25 | Inpatient (IN) | payer BC, SELFPAY ==
[2022-09-15 23:42] VITALS: PULSE 101; RESP 20; TEMP 37.3; O2SAT 97; BMI 24.3
[2022-09-16 01:21] LABS: Basophils % 0.6 %; Eosinophils % 0.6 %; Hematocrit 44.7 % (37.0-47.0); Hemoglobin 14.4 g/dL (11.5-15.3); Lymphocytes # 2.4 10^3/uL (0.8-4.8); Lymphocytes % 37.3 %; Mean Corpuscular HGB Conc 32.2 g/dL (30.0-36.0); Mean Corpuscular Hemoglobin 27.1 pg (28.0-34.0); Mean Platelet Volume 9.9 fL (7.4-10.4); Monocytes # 0.4 10^3/uL (0.2-0.9); Monocytes % 6.6 %; Neutrophils # 3.45 10^3/uL (1.8-7.7); Neutrophils % 54.7 %; Nucleated Red Blood Cells % 0 %; Platelet Count 283 10^3/cmm (130-400); Red Blood Count 5.32 10^6/uL (4.1-5.3); Red Cell Distribution Width 13.1 % (12.1-15.1); White Blood Count 6.3 10^3/uL (4.0-10.0)
[2022-09-16 01:31] LABS: Alanine Aminotransferase 10 U/L (0-33); Albumin Level 4.6 g/dL (3.5-5.2); Alcohol Level 142 mg/dL (0-10); Alkaline Phosphatase 69 U/L (35-105); Anion Gap 17.7 (5-19); Aspartate Amino Transferase 14 U/L (0-32); Blood Urea Nitrogen 7 mg/dL (6-20); Calcium 8.9 mg/dL (8.5-10.5); Carbon Dioxide 22 mmol/L (22-29); Chloride 105 mmol/L (98-107); Glomerular Filtration Rate 123.9 mL/min (90-130); Glucose 103 mg/dL (65-115); Osmolality Calculated 290 mOsm/kg (285-295); Potassium 3.7 mmol/L (3.5-5.1); Sodium 141 mmol/L (136-145); Total Bilirubin 0.2 mg/dL (0.15-1.2); Total Protein 7.6 g/dL (6.6-8.7)
[2022-09-16 01:33] LABS: Salicylate < 0.3 mg/dL (3-10)
[2022-09-16 01:34] LABS: Acetaminophen < 5.0 ug/mL (10-30)
[2022-09-16] MEDS: lidocaine 1% INJ 10 mL (per mL) INTRADERMA (02:05)
[2022-09-16 02:40] VITALS: BP 114/70; PULSE 71; RESP 14; O2SAT 98
[2022-09-16 02:48] LABS: Urine Appearance Turbid (CLEAR); Urine Color Red (Yellow)
[2022-09-16 02:51] LABS: Add Urine Microscopic? YES; Bilirubin Urine Neg (Negative); Blood Urine 3+ (Negative); Glucose Urine UA Norm (Normal); Ketones Urine 1+ (Negative); Leukocyte Esterase Urine Negative (Negative); Nitrate Urine Negative (Negative); Protein Urine 1+ (Negative); Urobilinogen Urine Norm (Negative); pH Urine 8 (5-7)
[2022-09-16 02:52] VITALS: BP 126/85; PULSE 93; RESP 18; TEMP 36.5; O2SAT 97
[2022-09-16 02:52] LABS: Sulfosalicylic Acid Urine Positive (Negative)
[2022-09-16 02:53] LABS: Add Urine Culture? Yes; Bacteria Urine TRACE /hpf; RBC Urine TOO NUMEROUS TO CNT /hpf (0-2); Squamous Epithelial Cell Urine 0-4 /hpf (0-5); WBC Urine 0-4 /hpf (0-5)
[2022-09-16 02:54] LABS: HCG Qualitative Urine. Negative (Negative)
--- NOTE | 2022-09-16 03:16 | PC.NURSE ---
0250-pt admitted from ED to NPU on 96 hour hold after cutting her own wrist. arrived tearful, flat but cooperative. body/safety check performed with no contraband noted. pt does have sutured laceration on the left wrist. dressing changed upon admission. pt reports she was not suicidal when she cut herself but just cut herself to feel pain. denies current si hi avh. reports marijuana use. states she had some drinks yesterday before cutting herself but that she normally does not drink very often. pt states she lost a child a couple of months ago and this is weighing on her heavily. reports volatile relationship with her . states her last inpatient psych admission was when she was 13 or 14. does report hx of cutting/self injurious behavior. reports home med compliance. denies medical issues. reports she has other kids who are at home and safe. no other issues voiced or noted at this time.
[2022-09-16 03:51] LABS: Amphetamines Screen Urine Negative (Negative); Barbiturates Screen Urine Negative (Negative); Benzodiazepines Screen Urine Negative (Negative); Cocaine Screen Urine Negative (Negative); Opiate Screen Urine Negative (Negative); PCP Screen Urine Negative (Negative); THC Screen Urine Positive (Negative)
[2022-09-16] MEDS: hyDROXYzine 25 mg Capsule 50 MG PO ×2 (04:29→17:04)
--- NOTE | 2022-09-16 04:55 | ED.C_ITS ---
HPI - Psych General: Chief Complaint: Psychiatric Symptoms Stated Complaint: EMILEE AGUILAR Time Seen by Provider: 09/15/22 23:58 Source: patient History of Present Illness: 21-year-old female who delivered an anencephalic baby 2 months ago. She has struggled with depression. She had been drinking earlier in the evening, and slit her wrist. She sustained a 2 inch, somewhat deep laceration to the left wrist. Bleeding is controlled. She now denies suicidality, but is very tearful on exam, and completely indifferent about her injury. MD complaint: suicidal ideation and feels depressed Onset (ago): hour(s) Duration: constant History of same: Yes Relieving factors: none Exacerbating factors: alcohol Context: recent alcohol abuse Associated psychiatric symptoms: depression and suicidal ideation Associated symptoms: Deny auditory hallucinations, visual hallucinations or homicidal ideation If self harm: has acted on plan Review of Systems Const: Denies: fever(s) ENMT: Denies: throat pain Card: Denies: chest pain Resp: Denies: dyspnea, productive cough or non-productive cough GI: Denies: nausea, vomiting or diarrhea Psych: Denies: visual hallucinations, auditory hallucinations or homicidal ideation PFS ED PFSH: Medical History Anencephaly of fetus affecting wilson Surgical History Status post Female Reproductive History: Date of last menstrual period: 09/16/22 Physical Exam Const: GENERAL APPEARANCE: in distress (Emotional) and odor of alcohol detected; not ill appearing and not frail appearing HENMT: COMMON NORMALS: normocephalic, atraumatic and Normal external nose present HEAD & SCALP: normocephalic and atraumatic FACE & SINUS: normal facial exam and face symmetric NOSE: Normal external nose present Eye: COMMON NORMALS: Equal, round and reactive pupils present and EOMs intact bilaterally PUPIL: Yes Equal, round and reactive pupils present Neck/C-Spine: GENERAL: Yes trachea midline Chest: CHEST: Yes Symmetrical chest wall rise Resp: COMMON NORMALS: normal respiratory effort, No retractions, No use of accessory muscles and clear to auscultation bilaterally AUSCULTATION: clear to auscultation bilaterally Cardio: COMMON NORMALS: regular rate and regular rhythm RATE: regular rate RHYTHM: regular rhythm GI: COMMON NORMALS: Normal to inspection, nondistended, normoactive bowel sounds present Extremity: COMMON NORMALS: no pedal edema NARRATIVE EXTREMITY EXAM: Examination of the left upper extremity reveals a 2 inch laceration to the volar left wrist. Subcutaneous fat, and a small portion of fascia are involved. Flexion of the wrist, MCPs, IP's, and DIPs are intact. Sensation is intact. Capillary refill to the fingers is normal. Radial and ulnar pulses are normal. Neuro: SHERIF COMA SCALE: document GCS findings [place] coma scale eye opening: Spontaneous [place] coma scale verbal response: Orientated Sherif coma scale motor response: Obey commands [place] coma scale total score: 15 SENSORY EXAM: Yes extremities (intact) Psych: COMMON NORMALS: speech normal SPEECH: Yes normal speech Skin: COMMON NORMALS: no rashes or lesions noted GENERAL SKIN EXAM: no rashes or lesions noted Procedures Laceration Laceration 1: Site: upper extremity (Left wrist) Side (If applicable): left Size (cm): 5.5 Description: linear Depth: simple, single layer Local Anesthetic: lidocaine 1% Amount of anesthesia used (mL): 5 Pre-repair: wound explored, irrigated extensively and deep structures intact Skin layer closed with: nylon Size (cm): 4-0 Number of sutures: 9 Technique: simple, interrupted Course Vital Signs: Vital signs: Vital Signs Temperature 97.7 F 09/16/22 02:52 Pulse Rate 93 09/16/22 02:52 Respiratory Rate 18 09/16/22 02:52 Blood Pressure 126/85 09/16/22 02:52 Pulse Oximetry 97 09/16/22 02:52 Oxygen Delivery Me thod Room Air 09/16/22 02:57 MDM - Psych Medical Decision Making Laceration repair performed by Mrs. Tucker PA-C. Spoke with psychiatry regarding this patient. Obviously the gesture of deep laceration to the left wrist is concerning for suicide attempt even though the patient now denies. She is mildly intoxicated with an alcohol level of 142. Other laboratory is completely benign. She will be admitted to the NPU. She is medically stable. She is placed under 96-hour hold for now. Lab Data 09/16/22 01:11 09/16/22 01:11 Laboratory Results WBC 6.3 10^3/uL (4.0-10.0) 09/16/22 01:11 RBC 5.32 10^6/uL (4.1-5.3) H 09/16/22 01:11 Hgb 14.4 g/dL (11.5-15.3) 09/16/22 01:11 Hct 44.7 % (37.0-47.0) 09/16/22 01:11 MCV 84.0 fl (81-99) 09/16/22 01:11 MCH 27.1 pg (28.0-34.0) L 09/16/22 01:11 MCHC 32.2 g/dL (30.0-36.0) 09/16/22 01:11 RDW 13.1 % (12.1-15.1) 09/16/22 01:11 Plt Count 283 10^3/cmm (130-400) 09/16/22 01:11 MPV 9.9 fL (7.4-10.4) 09/16/22 01:11 Neut % (Auto) 54.7 % 09/16/22 01:11 Lymph % (Auto) 37.3 % 09/16/22 01:11 [place] % (Auto) 6.6 % 09/16/22 01:11 Eos % (Auto) 0.6 % 09/16/22 01:11 Baso % (Auto) 0.6 % 09/16/22 01:11 Neut # (Auto) 3.45 10^3/uL (1.8-7.7) 09/16/22 01:11 Lymph # (Auto) 2.4 10^3/uL (0.8-4.8) 09/16/22 01:11 [place] # (Auto) 0.4 10^3/uL (0.2-0.9) 09/16/22 01:11 Eos # (Auto) 0.0 10^3/uL (0.0-0.8) 09/16/22 01:11 Baso # (Auto) 0.0 10^3/uL (0.0-0.1) 09/16/22 01:11 Nucleated RBC % (auto) 0 % 09/16/22 01:11 Nucleated RBCs # 0.0 /100WBC 09/16/22 01:11 Sodium 141 mmol/L (136-145) 09/16/22 01:11 Potassium 3.7 mmol/L (3.5-5.1) 09/16/22 01:11 Chloride 105 mmol/L (98-107) 09/16/22 01:11 Carbon Dioxide 22 mmol/L (22-29) 09/16/22 01:11 Anion Gap 17.7 (5-19) 09/16/22 01:11 BUN 7 mg/dL (6-20) 09/16/22 01:11 Creatinine 0.6 mg/dL (0.5-0.9) 09/16/22 01:11 GFR Calculation 123.9 mL/min (90-130) 09/16/22 01:11 Glucose 103 mg/dL (65-115) 09/16/22 01:11 Calculated Osmolality 290 mOsm/kg (285-295) 09/16/22 01:11 Calcium 8.9 mg/dL (8.5-10.5) 09/16/22 01:11 Total Bilirubin 0.2 mg/dL (0.15-1.2) 09/16/22 01:11 AST 14 U/L (0-32) 09/16/22 01:11 ALT 10 U/L (0-33) 09/16/22 01:11 Alkaline Phosphatase 69 U/L (35-105) 09/16/22 01:11 Total Protein 7.6 g/dL (6.6-8.7) 09/16/22 01:11 Albumin 4.6 g/dL (3.5-5.2) 09/16/22 01:11 Globulin 3.0 g/dL (1.3-4.6) 09/16/22 01:11 Salicylates < 0.3 mg/dL (3-10) L 09/16/22 01:11 Acetaminophen < 5.0 ug/mL (10-30) L 09/16/22 01:11 Ethyl Alcohol 142 mg/dL (0-10) H 09/16/22 01:11 Discharge Plan Discharge Patient Disposition: Admitted As Inpatient Admit Provider: Sandeep Yee Clinical Impression: Suicide attempt, Depression, Laceration of left wrist Condition: Stable Coding Level of Care Code ED Turret Press Operator for Jeremy Wheat
[2022-09-16 06:00] VITALS: BP 113/77; PULSE 68; RESP 16; TEMP 36.7; O2SAT 97
--- NOTE | 2022-09-16 06:30 | PC.NURSE ---
5428 Patient served 96 hour hold paperwork with security at bedside. All rights read. All questions answered. Patient verbalized understanding.
[2022-09-16 14:00] VITALS: BP 114/79; PULSE 69; RESP 16; TEMP 36.4; O2SAT 98
--- NOTE | 2022-09-16 15:15 | P.NPUHP_ITS ---
Providers/Chief Complaint Admitting Physician: Sandeep Yee MD Primary Care Provider: Selvin Valentine MD Chief Complaint: SI, MHE HPI NPU History of Present Illness Daniel Dennis is a 21 year old female who was admitted after presenting to the emergency department having sustained a 2 inch deep laceration in her left wrist. She had reported that she had been feeling suicidal and was admitted to the neuropsychiatric unit for further evaluation and treatment. Patient reports that she has been feeling depressed for several months. She reports her first episode of depression having occurred at the age of 14 leading to an inpatient hospitalization. She currently has endorsed since February 2022 having low energy low motivation anhedonia frequent episodes of crying sleep continuity disruption increased anxiety and a sense of hopelessness. She had reported that she had received news in February that her baby that she had been carrying at this time was anencephalic. She reports having delivered this baby 2 months ago and reports that her mood has been depressed particularly after the delivery as she stated that she expects her child to have been with her. She had reported previously suffering from depression for her 2 previous children. She states that she had been depressed for several months of her life and reports no history of remission from her past depressive episodes. She reports that she has been on an antidepressant currently but was uncertain as to whether it was Paxil Prozac or Zoloft. She reports having severe anxiety attacks for several years endorsing panic attacks occurring without a trigger which include symptoms of chest pain, shortness of breath, feeling as if she were going to along with tearing tearfulness and difficulties with swallowing that lasted approximately 30 minutes. She reports having these panic attacks nearly every day. She states that she has been prescribed Klonopin to be taken every 3 days. She had reported having recently used alcohol to help manage her anxiety although she had reported that she is not a routine user of alcohol. She has reported no other substance use. She reported no history of shelli or psychosis. She had denied any auditory or visual hallucinations. She had not reported no recent self-injurious behavior and states that she has been struggling with dealing with this emotional trauma delivering and anencephalic child 2 months ago. The patient's blood alcohol level was 142 on admission. Past psychiatric history: She reports 1 previous psychiatric hospitalization for depression at [facility] in [facility]. She reports having been hospitalized for 2 weeks during that hospital stay. She had reported receiving outpatient psychotherapy at [facility] for the past 4 months. She reports previously having been treated for major depressive disorder and panic disorder. Current medications: Klonopin 1 mg as needed, hydroxyzine, Medical history: None Surgical history: History of Allergies: Sulfa drugs substance abuse history: None reported other than marijuana use and occasional alcohol use. Legal history: none history: None Social history: Patient was born in [facility] and was raised by her mother and stepfather as she has limited contact with her father who had left the family when the patient was 1 years old. She reports having many siblings and half siblings. She reported that she currently lives with her of 1 year and 2 boys aged 5 and 2. She reported currently working at her [employer] and reports having graduated high school in [place]. She denied any history of sexual physical or emotional abuse although she had reported that she had been depressed as a child and had suffered from anxiety. She had acknowledged a spontaneous delivery of an anencephalic child 2 months ago. Family psychiatric history: None reported Meds NPU Home Medications Medication Instructions Recorded Confirmed Last Taken Type clonazepam 0.5 mg tablet 1 mg PO DAILY PRN anxiety 09/16/22 09/16/22 Unknown History Allergies Allergy/AdvReac Type Severity Reaction Status Date / Time Sulfa (Sulfonamide Allergy ALGY-Anaphy Verified 09/15/22 23:45 Antibiotics) laxis PFSH NPU PFSH: Medical History Anencephaly of fetus affecting wilson Surgical History Status post Mental Status Exam MSE Comments: Patient is a casually dressed white female with adequate hygiene who appeared older than her stated age. There is no evidence of any abnormal involuntary motor movements or tics appreciated. Examination of the left upper extremity showed a 2 inch laceration that was bandaged in the left wrist. She was alert and oriented to person place and time. Her gait appeared adequate. Her hygiene was fair. There was no evidence of any psychomotor activation but there was evidence of prominent psychomotor retardation. She was quite tearful throughout the interview. She endorsed her mood as depressed. Her affect was tearful and mood-congruent. Her thought process was linear logical and goal-directed. She endorsed having had acknowledged a thought of hurting herself but denied any active suicidal ideation. She denied any homicidal ideation. Her speech was monotone and normal in rate and volume. There was no evidence of any delusional thinking. She did not appear to be responding to internal stimuli. Her attention appeared adequate. Her insight was poor. Her judgment was poor. Her impulse control appeared poor as well. Her recent and remote memory appeared grossly intact. Vitals/I&O/Wt Last Vital Signs Temp 97.6 F 09/16/22 14:00 Pulse 69 09/16/22 14:00 Resp 16 09/16/22 14:00 BP 114/79 09/16/22 14:00 Pulse Ox 98 09/16/22 14:00 O2 Del Method Room Air 09/16/22 02:57 Weight last 48 hrs Weight 77.111 kg Data NPU 09/16/22 01:11 09/16/22 01:11 A&P Assessment and plan (1) Major depressive disorder, recurrent episode: (2) Panic disorder without agoraphobia: Plan This is a 21-year-old white female admitted with a significant suicide attempt after being triggered by news of anencephalic child while in gestation with an extended history of major depressive disorder along with panic disorder who has a prior history of inpatient treatment for depression 6 years ago. 1.? ? Engage? patient in individual ,milieu, and group therapy ?2. ? We will attempt to gather collateral information from previous providers ?3. ? TO-15 minute checks on the unit. ?4.? Recommend sober living treatment at the highest level of care to which the patient is willing to commit. 5. Will restart klonopin and begin paxil to target MDD and Panic disorder. Involuntary Hold Information 96 Hour Hold: 96 Hour Involuntary Admission: Yes 96 Hour Hold Ending Date: 09/20/22 96 Hour Hold Ending Time: 02:50 Attestations NPU Medical Necessity Statement*: Inpatient hospitalization is medically necessary and deemed to be the clinically appropriate intervention at this time. We will monitor and initiate medications as indicated. She will be in the hospital for over 2 midnights. Her likely length of stay is 4 to 7 days. Coding Level of Care Code Acute Code for [facility] Diagnoses Major depressive disorder, recurrent episode F33.9 Panic disorder without agoraphobia F41.0
--- NOTE | 2022-09-16 16:07 | PC.NURSE ---
out on the patio for group therapy
--- NOTE | 2022-09-16 17:06 | PC.NURSE ---
Patient anxious. Administered Hydroxyzine 50mg PO. Encouraged patient to practice deep breathing exercises. Will continue to monitor.
[2022-09-16] MEDS: acetaminophen 325 mg Tablet 650 MG PO (17:48)
--- NOTE | 2022-09-16 18:20 | PC.NURSE ---
9 STITCHES NOTED TO LEFT WRIST, COVERED WITH NEW NON-ADHERENT PAD & SECURED WITH TAPE
[2022-09-16 20:03] VITALS: BP 113/73; PULSE 61; RESP 16; TEMP 36.4; O2SAT 98
[2022-09-16] MEDS: PARoxetine 20 mg Tablet PO (20:32)
[2022-09-16] MEDS: CLONazepam 0.5 mg Tablet 0.25 MG PO (20:32)
[2022-09-17 06:00] VITALS: BP 120/80; PULSE 66; RESP 16; TEMP 36.7; O2SAT 96
[2022-09-17] MEDS: CLONazepam 0.5 mg Tablet 0.25 MG PO ×3 (07:56→20:40)
--- NOTE | 2022-09-17 10:35 | PC.NURSE ---
attended Goals group @ [id number]
[2022-09-17] MEDS: acetaminophen 325 mg Tablet 650 MG PO ×2 (10:56→18:11)
[2022-09-17] MEDS: hyDROXYzine 25 mg Capsule 50 MG PO ×2 (11:38→18:11)
--- NOTE | 2022-09-17 11:52 | PC.NURSE ---
Patient anxious. Patient rating anxiety as severe. Administered 50mg Vistaril PO. Will continue to monitor patient.
[2022-09-17 14:00] VITALS: BP 112/82; PULSE 52; RESP 16; TEMP 36.8; O2SAT 100
--- NOTE | 2022-09-17 15:35 | P.NPUPN_ITS ---
Subjective NPU Subjective: The patient is a 21-year-old white female with a history of panic disorder and major depressive disorder admitted with this suicide attempt with laceration of her left wrist. The patient reported having no thoughts of hurting herself at this time. She had reported difficulties falling asleep. She continued to endorse depressed mood and stated that she had a panic attack yesterday. She r eported feeling more anxious initially after taking her Paxil last night. Staff notes the patient had been isolative. She reported that she had been feeling depressed for a significant period of time. She reported no feelings of hopelessness today. She had reported continued sadness regarding the of her child. She had reported that she had been motivated to return to work as it was a good distraction for her. She had continued reports no triggers with her panic attacks. Mental Status Exam MSE Comments: Patient is a casually dressed white female with adequate hygiene who appeared older than her stated age. There is no evidence of any abnormal involuntary motor movements or tics appreciated. Examination of the left upper extremity showed a 2 inch laceration that was bandaged in the left wrist. She was alert and oriented to person place and time. Her gait appeared adequate. Her hygiene was fair. There was evidence of prominent psychomotor retardation. She was quite tearful during the interview again.. She continued to endorse her mood as depressed. Her affect was mood-congruent and restricted in range. Her thought process was linear logical and goal-directed. She endorsed having acknowledged a thought of hurting herself but denied any active suicidal ideation. She denied any homicidal ideation. Her speech was monotone and normal in rate and volume. There was no evidence of any delusional thinking. She did not appear to be responding to internal stimuli. Her attention appeared adequate. Her insight was poor. Her judgment was poor. Her impulse control appeared improving. To be Her recent and remote memory appeared grossly intact. Vitals/I&O/Wt Last Vital Signs Temp 98.3 F 09/17/22 14:00 Pulse 52 L 09/17/22 14:00 Resp 16 09/17/22 14:00 BP 112/82 09/17/22 14:00 Pulse Ox 100 09/17/22 14:00 O2 Del Method Room Air 09/17/22 14:00 Weight last 48 hrs Weight 75.296 kg Weight 77.111 kg Data NPU 09/16/22 01:11 09/16/22 01:11 Micro: Microbiology 09/16/22 02:28 Urine Culture - Preliminary Urine,Clean Catch Microbiology 09/16/22 02:28 Urine,Clean Catch Urine Culture - Preliminary A&P Assessment and plan (1) Major depressive disorder, recurrent episode: (2) Panic disorder without agoraphobia: Plan This is a 21-year-old white female admitted with a significant suicide attempt after being triggered by news of anencephalic child while in gestation with an extended history of major depressive disorder along with panic disorder who has a prior history of inpatient treatment for depression 6 years ago. 1.? ? Engage? patient in individual ,milieu, and group therapy ?2. ? Continue Paxil 20 mg at night. Add trazodone 50 mg at night for insomnia. ?3. ? TO-15 minute checks on the unit. ?4.? Recommend sober living treatment at the highest level of care to which the patient is willing to commit. 5. Continue Klonopin 0.25 mg 3 times a day. Involuntary Hold Information 96 Hour Hold: 96 Hour Involuntary Admission: Yes 96 Hour Hold Ending Date: 09/20/22 96 Hour Hold Ending Time: 02:50 Attestations NPU Medical Necessity Statement*: Inpatient hospitalization is medically necessary and deemed to be the clinically appropriate intervention at this time. We will monitor and initiate medications as indicated. She will be in the hospital for over 2 midnights. Her likely length of stay is 3-5 days. Coding Level of Care Code Acute Code for [facility] Diagnoses Major depressive disorder, recurrent episode F33.9 Panic disorder without agoraphobia F41.0
[2022-09-17 20:01] VITALS: BP 118/78; PULSE 84; RESP 16; TEMP 36.6; O2SAT 97
[2022-09-17] MEDS: PARoxetine 20 mg Tablet PO (20:40)
[2022-09-17] MEDS: trazodone 50 mg Tablet PO (20:40)
[2022-09-18] MEDS: CLONazepam 0.5 mg Tablet 0.25 MG PO ×3 (09:02→20:40)
[2022-09-18] MEDS: acetaminophen 325 mg Tablet 650 MG PO (13:03)
[2022-09-18 14:00] VITALS: BP 110/70; PULSE 72; RESP 16; TEMP 37; O2SAT 99
--- NOTE | 2022-09-18 14:35 | P.NPUPN_ITS ---
Subjective NPU Subjective: The patient is a 21-year-old white female with a history of panic disorder and major depressive disorder admitted with this suicide attempt with laceration of her left wrist. Patient had reported that she did not have any panic attacks yesterday. She had reported feeling more optimistic about returning home and resuming work. She was agreeable to considering outpatient treatment. She had reported having brief episodes of anxiety but stated that they did not develop into a full-blown panic attack. She had continued to report some sadness about the of her child and reported having desire to receive further treatment for her chronic depression. She did report having initial anxiety from the initiation of Paxil at 20 mg at night but states that it had been better over the last 24 hours. She reported no thoughts of cutting herself or hurting herself at this time. Mental Status Exam MSE Comments: Patient is a casually dressed white female with adequate hygiene who appeared her stated age. There is no evidence of any abnormal involuntary motor movements or tics appreciated. Examination of the left upper extremity showed a 2 inch laceration that was bandaged in the left wrist. She was alert and oriented to person place and time. Her gait appeared adequate. Her hygiene was fair. There was continued evidence of mild psychomotor retardation. She reported her mood is better. Her affect was restricted but not tearful today. Her thought process was linear logical and goal-directed. She denied any suicidal ideation or homicidal ideation. Her speech was normal in regards to rate rhythm and prosody. There was no evidence of any delusional thinking. She did not appear to be responding to internal stimuli. Her attention appeared adequate. Her insight was improving.. Her judgment was improving.. Her impulse control appeared improving. Her recent and remote memory appeared grossly intact. Vitals/I&O/Wt Last Vital Signs Temp 97.9 F 09/17/22 20:01 Pulse 84 09/17/22 20:01 Resp 16 09/17/22 20:01 BP 118/78 09/17/22 20:01 Pulse Ox 97 09/17/22 20:01 O2 Del Method Room Air 09/17/22 20:01 Weight last 48 hrs Weight 75.296 kg Data NPU 09/16/22 01:11 09/16/22 01:11 Micro: Microbiology 09/16/22 02:28 Urine Culture - Final Urine,Clean Catch Microbiology 09/16/22 02:28 Urine,Clean Catch Urine Culture - Final A&P Assessment and plan (1) Major depressive disorder, recurrent episode: (2) Panic disorder without agoraphobia: Plan This is a 21-year-old white female admitted with a significant suicide attempt after being triggered by news of anencephalic child while in gestation with an extended history of major depressive disorder along with panic disorder who has a prior history of inpatient treatment for depression 6 years ago. 1.? ? Engage? patient in individual ,milieu, and group therapy ?2. ? Continue Paxil 20 mg at night. Continue trazodone 50 mg at night for insomnia. ?3. ? TO-15 minute checks on the unit. ?4.? Recommend sober living treatment at the highest level of care to which the patient is willing to commit. 5. Continue Klonopin 0.25 mg 3 times a day. Involuntary Hold Information 96 Hour Hold: 96 Hour Involuntary Admission: Yes 96 Hour Hold Ending Date: 09/20/22 96 Hour Hold Ending Time: 02:50 Attestations NPU Medical Necessity Statement*: Inpatient hospitalization is medically necessary and deemed to be the clinically appropriate intervention at this time. We will monitor and initiate medications with her likely length of stay is 1-2 days. Coding Level of Care Code Acute Code for [facility] Diagnoses Major depressive disorder, recurrent episode F33.9 Panic disorder without agoraphobia F41.0
[2022-09-18] MEDS: trazodone 50 mg Tablet PO (20:39)
[2022-09-18] MEDS: PARoxetine 20 mg Tablet PO (20:40)
[2022-09-18 22:00] VITALS: BP 116/74; PULSE 66; RESP 16; TEMP 36.4; O2SAT 98
[2022-09-19 06:00] VITALS: RESP 15
[2022-09-19] MEDS: CLONazepam 0.5 mg Tablet 0.25 MG PO (08:43)
[2022-09-19 09:18] VITALS: BP 101/74; PULSE 64; RESP 16; TEMP 36.4; O2SAT 98
[2022-09-19 09:48] VITALS: BP 101/74; PULSE 64; RESP 16; TEMP 36.4; O2SAT 98
[2022-09-19 09:50] VITALS: BP 101/74; PULSE 64; RESP 16; TEMP 36.4; O2SAT 98
--- NOTE | 2022-09-19 12:53 | P.NPUDS_ITS ---
Diagnoses at Discharge Discharge Diagnosis (1) Major depressive disorder, recurrent episode: Status: Acute (2) Panic disorder without agoraphobia: Status: Acute Reason for Visit Reason for Visit: SI, MHE Brief History: History of Present Illness Daniel Dennis is a 21 year old female who was admitted after presenting to the emergency department having sustained a 2 inch deep laceration in her left wrist.? She had reported that she had been feeling suicidal and was admitted to the neuropsychiatric unit for further evaluation and treatment.? Patient reports that she has been feeling depressed for several months.? She reports her first episode of depression having occurred at the age of 14 leading to an inpatient hospitalization.? She currently has endorsed since February 2022 having low energy low motivation anhedonia frequent episodes of crying sleep continuity disruption increased anxiety and a sense of hopelessness.? She had reported that she had received news in February that her baby that she had been carrying at this time was anencephalic.? She reports having delivered this baby 2 months ago and reports that her mood has been depressed particularly after the delivery as she stated that she expects her child to have been with her.? She had reported previously suffering from depression for her 2 previous children.? She states that she had been depressed for several months of her life and reports no history of remission from her past depressive episodes.? She reports that she has been on an antidepressant currently but was uncertain as to whether it was Paxil Prozac or Zoloft.? She reports having severe anxiety attacks for several years endorsing panic attacks occurring without a trigger which include symptoms of chest pain, shortness of breath, feeling as if she were going to along with tearing tearfulness and difficulties with swallowing that lasted approximately 30 minutes.? She reports having these panic attacks nearly every day.? She states that she has been prescribed Klonopin to be taken every 3 days.? She had reported having recently used alcohol to help manage her anxiety although she had reported that she is not a routine user of alcohol.? She has reported no other substance use.? She reported no history of shelli or psychosis.? She had denied any auditory or visual hallucinations.? She had not reported no recent self-injurious behavior and states that she has been struggling with dealing with this emotional trauma delivering and anencephalic child 2 months ago.? The patient's blood alcohol level was 142 on admission. Past psychiatric history: She reports 1 previous psychiatric hospitalization for depression at [facility] in [facility].? She reports having been ho spitalized for 2 weeks during that hospital stay.? She had reported receiving outpatient psychotherapy at [facility] for the past 4 months.? She reports previously having been treated for major depressive disorder and panic disorder. Current medications: Klonopin 1 mg as needed, hydroxyzine, Medical history: None Surgical history: History of Allergies: Sulfa drugs substance abuse history: None reported other than marijuana use and occasional alcohol use. Legal history: none history: None Social history: Patient was born in [facility] and was raised by her mother and stepfather as she has limited contact with her father who had left the family when the patient was 1 years old.? She reports having many siblings and half siblings.? She reported that she currently lives with her of 1 year and 2 boys aged 5 and 2.? She reported currently working at her [employer] and reports having graduated high school in [place].? She denied any history of sexual physical or emotional abuse although she had reported that she had been depressed as a child and had suffered from anxiety.? She had acknowledged a spontaneous delivery of an anencephalic child 2 months ago. Family psychiatric history: None reported Hospital Course Hospital Course During the hospitalization, patient had routine laboratory studies which were within normal limits except for few outliers. Additionally there was a general medical evaluation which was also within normal limits and revealed no new acute processes. At the time of discharge, lethality was denied and her panic attacks had diminished. Mood and anxiety were well managed. Patient endorsed a plan to avoid all drugs of abuse and follow-up with the aftercare recommendations of the treatment team. Patient was evaluated and deemed to be absent credible lethality, and had achieved the maximum benefit from an inpatient hospitalizat ion, so was discharged. The patient was placed on a routine dose of Klonopin 0.25 mg 3 times a day with a clear reduction in the frequency of panic symptoms. She was also started on Paxil 20 mg at night which she tolerated well. She had been informed that the general plan to improve panic disorder would likely involve a slow titration of Paxil up to possibly 60 mg with the eventual slow reduction and discontinuation of Klonopin. Patient was agreeable to this plan. She was informed to chart her panic attacks so that she could report back to her physician or therapist. Involuntary Hold Information 96 Hour Hold: 96 Hour Involuntary Admission: Yes 96 Hour Hold Ending Date: 09/20/22 96 Hour Hold Ending Time: 02:50 Mental Status Exam MSE Comments: Patient is a casually dressed white female with adequate hygiene who appeared her stated age. There is no evidence of any abnormal involuntary motor movements or tics appreciated. Examination of the left upper extremity showed a 2 inch laceration that was healing well. She was alert and oriented to person place and time. Her gait appeared adequate. Her hygiene was fair. There was no evidence of psychomotor retardation on discharge. Her mood was described as better. Her affect was brighter on discharge. Her thought process was linear logical and goal-directed. She denied any suicidal ideation or homicidal ideation. Her speech was normal in regards to rate rhythm and prosody. There was no evidence of any delusional thinking. She did not appear to be responding to internal stimuli. Her attention appeared adequate. Her insight was improved. Her judgment was better. Her impulse control appeared to be improving. Her recent and remote memory appeared grossly intact. Discharge Data Studies Completed and Pending: Laboratory Results WBC 6.3 10^3/uL (4.0- 10.0) 09/16/22 01:11 RBC 5.32 10^6/uL (4.1 -5.3) H 09/16/22 01:11 Hgb 14.4 g/dL (11.5-1 5.3) 09/16/22 01:11 Hct 44.7 % (37.0-47.0 ) 09/16/22 01:11 MCV 84.0 fl (81-99) 09/16/22 01:11 MCH 27.1 pg (28.0-34. 0) L 09/16/22 01:11 MCHC 32.2 g/dL (30.0-3 6.0) 09/16/22 01:11 RDW 13.1 % (12.1-15.1 ) 09/16/22 01:11 Plt Count 283 10^3/cmm (130 -400) 09/16/22 01:11 MPV 9.9 fL (7.4-10.4) 09/16/22 01:11 Neut % (Auto) 54.7 % 09/16/22 01:11 Lymph % (Auto) 37.3 % 09/16/22 01:11 [place] % (Auto) 6.6 % 09/16/22 01:11 Eos % (Auto) 0.6 % 09/16/22 01:11 Baso % (Auto) 0.6 % 09/16/22 01:11 Neut # (Auto) 3.45 10^3/uL (1.8 -7.7) 09/16/22 01:11 Lymph # (Auto) 2.4 10^3/uL (0.8- 4.8) 09/16/22 01:11 [place] # (Auto) 0.4 10^3/uL (0.2- 0.9) 09/16/22 01:11 Eos # (Auto) 0.0 10^3/uL (0.0- 0.8) 09/16/22 01:11 Baso # (Auto) 0.0 10^3/uL (0.0- 0.1) 09/16/22 01:11 Nucleated RBC % (a uto) 0 % 09/16/22 01:11 Nucleated RBCs # 0.0 /100WBC 09/16/22 01:11 Sodium 141 mmol/L (136-1 45) 09/16/22 01:11 Potassium 3.7 mmol/L (3.5-5 .1) 09/16/22 01:11 Chloride 105 mmol/L (98-10 7) 09/16/22 01:11 Carbon Dioxide 22 mmol/L (22-29) 09/16/22 01:11 Anion Gap 17.7 (5-19) 09/16/22 01:11 BUN 7 mg/dL (6-20) 09/16/22 01:11 Creatinine 0.6 mg/dL (0.5-0. 9) 09/16/22 01:11 GFR Calculation 123.9 mL/min (90- 130) 09/16/22 01:11 Glucose 103 mg/dL (65-115 ) 09/16/22 01:11 Calculated Osmolal ity 290 mOsm/kg (285- 295) 09/16/22 01:11 Calcium 8.9 mg/dL (8.5-10 .5) 09/16/22 01:11 Total Bilirubin 0.2 mg/dL (0.15-1 .2) 09/16/22 01:11 AST 14 U/L (0-32) 09/16/22 01:11 ALT 10 U/L (0-33) 09/16/22 01:11 Alkaline Phosphata se 69 U/L (35-105) 09/16/22 01:11 Total Protein 7.6 g/dL (6.6-8.7 ) 09/16/22 01:11 Albumin 4.6 g/dL (3.5-5.2 ) 09/16/22 01:11 Globulin 3.0 g/dL (1.3-4.6 ) 09/16/22 01:11 HCG, Qual Negative (Negati ve) 09/16/22 02:28 Urine Color Red (Yellow) 09/16/22 02:28 Urine Appearance Turbid (CLEAR) A 09/16/22 02:28 Urine pH 8 (5-7) H 09/16/22 02:28 Ur Specific Gravit y 1.010 (1.005-1.0 30) 09/16/22 02:28 Urine Protein 1+ (Negative) H 09/16/22 02:28 Urine Glucose (UA) Norm (Normal) 09/16/22 02:28 Urine Ketones 1+ (Negative) H 09/16/22 02:28 Urine Blood 3+ (Negative) H 09/16/22 02:28 Urine Nitrate Negative (Negati ve) 09/16/22 02:28 Urine Bilirubin Neg (Negative) 09/16/22 02:28 Prot Sulfosalicyli c Acd Positive (Negati ve) 09/16/22 02:28 Urine Urobilinogen Norm mg/dL (Negat aleyda) 09/16/22 02:28 Ur Leukocyte Yessenia ase Negative (Negati ve) 09/16/22 02:28 Urine RBC Too numerous to c nt /hpf (0-2) H 09/16/22 02:28 Urine WBC 0-4 /hpf (0-5) H 09/16/22 02:28 Ur Squamous Epith Cells 0-4 /hpf (0-5) H 09/16/22 02:28 Amorphous Sediment Not Reportable 09/16/22 02:28 Urine Bacteria Trace /hpf (NONE) 09/16/22 02:28 Salicylates < 0.3 mg/dL (3-10 ) L 09/16/22 01:11 Urine Opiates Scre en Negative ng/mL (N egative) 09/16/22 02:28 Acetaminophen < 5.0 ug/mL (10-3 0) L 09/16/22 01:11 Ur Barbiturates Sc reen Negative ng/mL (N egative) 09/16/22 02:28 Ur Phencyclidine S crn Negative ng/mL (N egative) 09/16/22 02:28 Ur Amphetamines Sc reen Negative ng/mL (N egative) 09/16/22 02:28 U Benzodiazepines Scrn Negative ng/mL (N egative) 09/16/22 02:28 Urine Cocaine Scre en Negative ng/mL (N egative) 09/16/22 02:28 U Marijuana (THC) Screen Positive ng/mL (N egative) H 09/16/22 02:28 Ethyl Alcohol 142 mg/dL (0-10) H 09/16/22 01:11 Vitals: Last Vital Signs Temp 97.5 F L 09/19/22 09:50 Pulse 64 09/19/22 09:50 Resp 16 09/19/22 09:50 BP 101/74 09/19/22 09:50 Pulse Ox 98 09/19/22 09:50 O2 Del Method Room Air 09/19/22 09:18 Discharge Plan Discharge Patient Disposition: Home Condition: Stable Prescriptions: New clonazepam 0.5 mg Tablet 0.25 mg PO TID Qty: 45 0RF paroxetine HCl 20 mg Tablet 20 mg PO BEDTIME 30 Days Qty: 30 1RF trazodone 50 mg Tablet 50 mg PO BEDTIME 30 Days Qty: 30 1RF Klonopin 0.5 mg tablet 0.25 mg PO TID Qty: 45 0RF Discontinued clonazepam 0.5 mg tablet 1 mg PO DAILY PRN (Reason: anxiety) Discharge Orders: Discharge Order (Routine); Ordered 09/19/22 Ordered By: Marcin Savage Referrals: [employer] [Other] (Call Jeannine Trevizo with [employer] for Insurance questions.) Petar Maki LCSW [Other] - 10/03/22 10:30 am (Follow up) [facility] [Outside] - 10/04/22 2:30 pm (Initial appointment scheduled for 10/04/22 at 1430 check in.) Selvin Valentine MD [Primary Care Provider] - 10/02/22 10:50 am (Appointment will be with Delmi Ureña. ) Discharge Diet: Usual diet Discharge Activity: Resume usual activity Patient Instructions: Clonazepam (By mouth), Trazodone (By mouth), Paroxetine (By mouth), Depression (DC), Help Prevent Suicide (DC), Suicide Prevention (DC), Opioid Safety Discharge Attestations NPU Time Spent in Discharge Care*: less than 30 min Specific Discharge Activities: Specific discharge activities: educating patient, discussing with telehealth case manager/social workers/dc planners and evaluating patient/reviewing data Coding Level of Care Code Acute Chg FW DC note Diagnoses Major depressive disorder, recurrent episode F33.9 Panic disorder without agoraphobia F41.0
[2022-09-19 13:03] VITALS: BP 109/72; PULSE 64; RESP 15; TEMP 36.6; O2SAT 98
--- NOTE | 2022-09-19 13:22 | PC.NURSE ---
written discharge instruction discussed and left with patient. pt states understanding. pt also states understanding to call fransisca lindsay for instruction on when stitches are to be removed. pt belonging and medication given to patient for discharge.
== END 2022-09-19 13:48 | disposition home or self-care (01) | DRG 885 ==
LOC: ER 09-16 02:43 → NP 09-16 04:55
PROVIDERS: Admitting Provider Psychiatry & Neurology Psychiatry; Emergency Provider Emergency Medicine; PCP Family Medicine; Visit Provider Psychiatry & Neurology Psychiatry
DX: F33.9 Major depressive disorder, recurrent, unspecified (principal); R45.851 Suicidal ideations; S61.512A Laceration without foreign body of left wrist, initial encounter; X78.9XXA Intentional self-harm by unspecified sharp object, initial encounter; F41.0 Panic disorder [episodic paroxysmal anxiety]; F41.9 Anxiety disorder, unspecified; F10.129 Alcohol abuse with intoxication, unspecified; Y90.6 Blood alcohol level of 120-199 mg/100 ml
CPT/HCPCS: 12002; 36415; 80053; 80306; 80307; 81001; 81025; 85025; 87086; 97150; 97165; 99285

== ENCOUNTER 2025-03-03 00:36 | Inpatient (IN) | payer SELFPAY ==
[2025-03-02 23:50] VITALS: BMI 31.4
[2025-03-03] VITALS (58 sets, daily range): BP systolic 96–169; BP diastolic 52–89; PULSE 69–106; RESP 16; TEMP 36.4–36.6; O2SAT 96–99
[2025-03-03 00:23] LABS: Hematocrit 37.9 % (36-47); Hemoglobin 13.10 g/dL (11.27-16.99); Mean Corpuscular HGB Conc 34.6 g/dL (30-55); Mean Corpuscular Hemoglobin 28.5 pg (27-33); Mean Corpuscular Volume 82.4 fl (85-98); Nucleated Red Blood Cells % 0 %; Platelet Count 260 10^3/cmm (157-399); Red Blood Count 4.60 10^6/uL (3.85-5.65); White Blood Count 15.67 10^3/uL (3.29-11.43)
[2025-03-03 00:30] LABS: PCP Screen Urine Negative (Negative)
[2025-03-03] MEDS: oxytocin 30 UNIT/500 ML BAG IV (00:45)
[2025-03-03] MEDS: ROPivacaine premix 200 MG/100 ML PREMIX 10 MG EPIDURAL (05:35)
--- NOTE | 2025-03-03 05:37 | P.ANESASSM_ITS ---
Pre-Anesthetic Assessment Height/Weight: Height 1.7 m Weight 91.172 kg Pulse BP Pulse Ox O2 Del Method 81 121/60 98 Room Air 03/03/25 05:33 03/03/25 05:33 03/03/25 05:28 03/03/25 00:21 Preop Diagnosis: intrauterine labor epidural Familial anesthetic complications: none Was Beta Tiera taken within 24 hours: N/A Was Clonidine taken within 24 hours: N/A Social No alcohol and No tobacco Exam alert, oriented x 3 and clear to auscultation bilaterally Airway Mallampati: Class II Dentition: full History/ROS No significant history except as noted Pulmonary None reported CV/HEM None reported None reported Hepatic None reported GI None reported Metabolic None reported Musc/skel None reported Neuropsych Anxiety and Depression Anesthetic Plan ASA status: 2 Anesthesia: Anesthesia Evaluation and Regional (specify below) Risk of > 500 ml blood loss (7ml/kg in children): Yes, adequate IV access and fluids planned Medications/Allergies Home Medications ?Medication ?Instructions ?Recorded ?Confirmed ?Last Taken ?Type [id number] 1 mg 1 tab PO DAILY 03/03/25 Unknown History tablet Allergies Allergy/AdvReac Type Severity Reaction Status Date / Time Sulfa (Sulfonamide Allergy ALGY-Anaphy Verified 03/03/25 00:07 Antibiotics) laxis Current Medications Generic Name Dose Route Start Last Admin Trade Name Freq PRN Reason Stop Dose Admin Dextrose/Lactated Ringer's 1,000 mls @ 125 mls/hr 03/03/25 00:15 03/03/25 04:08 Dextrose 5%-Lactated Ringers IV 0 mls/hr .Q8H GARETH Infusion Oxytocin 30 unit in 500 mls @ 1 mls/hr 03/03/25 00:30 03/03/25 03:45 Pitocin IV 5 milliunit/min .Q24H GARETH 5 mls/hr Protocol Titration 1 MILLIUNIT/MIN Sodium Chloride 1,000 mls @ 999 mls/hr 03/03/25 04:03 03/03/25 04:08 Sodium Chloride 0.9% IV 999 mls/hr .Q1H1M PRN Administration See label comments PFSH Anesthesia Medical History Anencephaly of fetus affecting wilson Surgical History Status post Female Reproductive History : 5 Data Anesthesia 03/03/25 00:00 Short CBC 03/03/25 Range/Units 00:00 WBC 15.67 H (3.29-11.43) 10^3/uL Hgb 13.10 (11.27-16.99) g/dL Hct 37.9 (36-47) % MCV 82.4 L (85-98) fl Plt Count 260 (157-399) 10^3/cmm Neut % (Auto) 71.0 % Neut # (Auto) 11.12 H (1.8-7.7) 10^3/uL Blood Bank 03/03/25 00:00 Blood Type A Positive Rho(D) Type Rh positive Antibody Screen Negative Anesthesia Procedures Epidural Time Out Performed: Yes Consents Signed: Procedure Consent Consent: requested by attending/covering physician, from patient, risks and benefits reviewed and patient agrees to proceed Lumbar Level: L4-L5 Epidural position: sitting Epidural procedure: sterile prep of area, 1% lidocaine to numb the area, 18 g needle, negative for paresthesia passed, neg for paresthesia, test dose given, 1.5% xylocaine 1:200k epi, 0.2% Ropivacaine bolus ml (5), placed PCEA, no systemic response, sterile dressing applied, L.U.D. no apparent complications and 0.2% Ropiavacaine @ mls/hr (10) Additional Comments: VANDANA 6cm, catheter easily threaded to 5cm in the space. VS monitored throughout and remained stable. Pt educated on [employer] and reporting adequate pain relief with epidural
[2025-03-03] MEDS: ondansetron 2 mg/ML SDV 2 mL 4 MG IVP (06:13)
--- NOTE | 2025-03-03 09:59 | PM.OPHPUD ---
Labor & Delivery H&P Update Date of Procedure: March 03, 2025 Date H&P Performed: 03/02/25 Changes to previous documentation: The patient arrived to the hospital with spontaneous rupture membranes Admission Diagnosis: 24-year-old 5 para 3-0-1-2 at 39 weeks and 5 days with a history of a section Preop diagnosis: intrauterine Planned procedure: Spontaneous vaginal delivery Related Problem List Diagnoses 1. 39 weeks gestation of : 2. History of : A&P Assessment and plan 1. 39 weeks gestation of : I anticipate routine labor and delivery. Due to her history of a , the anesthesia provider has been notified and will be immediately available. I will also be immediately available until the baby delivers Status: Acute 2. History of : Status: Acute PDMP PDMP Reviewed: Not Reviewed
--- NOTE | 2025-03-03 10:04 | P.PCNOB_ITS ---
Delivery Note: Date of delivery: March 03, 2025 Pre-delivery diagnoses: 24-year-old 5 para 3-0-1-2 at 39 weeks and 5 days Post-delivery diagnoses: Status post Procedure: Delivering Physician: Selvin Valentine Estimated blood loss (mL): 50 Pre-Delivery Course: The patient presented to the hospital with spontaneous rupture membranes. She was having minimal contractions. Pitocin was added to augment her labor. An epidural was placed. She progressed to complete without difficulty. Delivery: DELIVERY: The patient progressed to complete without difficulty. She delivered a female with a weight of 6 pounds 13 ounces with Apgars of 9, 9. The baby was delivered from the MIKE position and placed on the mother's abdomen. The cord w as then clamped and cut. There was no nuchal cord. There was no meconium. The placenta and 3 vessel cord were delivered intact shortly thereafter. The perineum and vaginal vault were carefully examined. No lacerations were noted. Both the mother and the baby were in stable condition. Post-Delivery Status: Good A&P Assessment and plan 1. , delivered: I anticipate routine care 2. 39 weeks gestation of : PDMP PDMP Reviewed: Not Reviewed Coding Level of Care Code Acute Code for Chg Fwd Diagnoses , delivered O34.219 39 weeks gestation of Z3A.39
[2025-03-03] MEDS: benzocaine-menthol 78 gm Canister 1 SPRAY TOPICAL (12:22)
[2025-03-03 22:10] LABS: Hematocrit 35.5 % (36-47); Hemoglobin 12.00 g/dL (11.27-16.99); Mean Corpuscular HGB Conc 33.8 g/dL (30-55); Mean Corpuscular Hemoglobin 27.9 pg (27-33); Mean Corpuscular Volume 82.6 fl (85-98); Platelet Count 227 10^3/cmm (157-399); Red Blood Count 4.30 10^6/uL (3.85-5.65); White Blood Count 18.92 10^3/uL (3.29-11.43)
[2025-03-04] MEDS: PRENATAL VIT NO.130/IRON/FOLIC 1 EACH TABLET PO (04:06)
[2025-03-04 04:09] VITALS: BP 119/78; PULSE 86; RESP 16; TEMP 36.6; O2SAT 98
--- NOTE | 2025-03-04 05:53 | PM.OBGYDC ---
Discharge Providers UNIT CONTROL CLERK Date of Admission: 03/03/25 00:36 Date of Discharge: 03/04/25 Attending Provider at Admission: Selvin Valentine MD Attending Provider at Discharge: Selvin Valentine MD Primary Care Provider: Selvin Valentine MD Diagnoses at Discharge Discharge Diagnosis 1. 39 weeks gestation of : 2. History of : Reason for Visit Reason for Visit: Possible SROM Hospital Course Hospital Course The patient presented to the hospital with spontaneous rupture membranes. She was a known labor patient. Her labor was augmented with Pitocin. An epidural was placed. She gradually progressed to complete without difficulty and had an unremarkable delivery of a healthy appearing female infant. Her course was unremarkable. Her bleeding was within normal limits. Her pain was well-controlled. She breast-fed well. There were no concerns. Information Peripartum Data: Delivery Method: Vaginal Physical Exam Narrative: The patient is alert. She appears comfortable. Her heart has a regular rate and rhythm with no murmurs appreciated. Lungs are clear to auscultation bilaterally. Her fundus is firm and below the umbilicus. Urinary Catheter Management: Lovell Latex Free: Cath Placed During This Visit: yes Reason for Continuing Indwelling Catheter: Required Immobilization for Trauma or Surgery or Anesthesia Urinary Catheter Date of Insertion: 03/03/25 Urinary Catheter Time of Insertion: 06:00 Discharge Data Studies Completed and Pending Pending at discharge Category Date Time Status High Risk PP Hemorrhage Stat Lab 03/03/25 00:30 Received Laboratory Results WBC 18.92 10^3/uL (3.29-11.43) H 03/03/25 21:45 RBC 4.30 10^6/uL (3.85-5.65) 03/03/25 21:45 Hgb 12.00 g/dL (11.27-16.99) 03/03/25 21:45 Hct 35.5 % (36-47) L 03/03/25 21:45 MCV 82.6 fl (85-98) L 03/03/25 21:45 MCH 27.9 pg (27-33) 03/03/25 21:45 MCHC 33.8 g/dL (30-55) 03/03/25 21:45 RDW 13.3 % (12.1-15.1) 03/03/25 21:45 Plt Count 227 10^3/cmm (157-399) 03/03/25 21:45 MPV 10.8 fL (7.4-10.4) H 03/03/25 21:45 Neut % (Auto) 71.0 % 03/03/25 00:00 Lymph % (Auto) 18.6 % 03/03/25 00:00 [place] % (Auto) 8.1 % 03/03/25 00:00 Eos % (Auto) 1.5 % 03/03/25 00:00 Baso % (Auto) 0.4 % 03/03/25 00:00 Neut # (Auto) 11.12 10^3/uL (1.8-7.7) H 03/03/25 00:00 Lymph # (Auto) 2.9 10^3/uL (0.8-4.8) 03/03/25 00:00 [place] # (Auto) 1.3 10^3/uL (0.2-0.9) H 03/03/25 00:00 Eos # (Auto) 0.2 10^3/uL (0.0-0.8) 03/03/25 00:00 Baso # (Auto) 0.1 10^3/uL (0.0-0.1) 03/03/25 00:00 Nucleated RBC % (auto) 0 % 03/03/25 00:00 Nucleated RBCs # 0.0 /100WBC 03/03/25 00:00 Urine Opiates Screen Negative ng/mL (Negative) 03/03/25 00:00 Ur Barbiturates Screen Negative ng/mL (Negative) 03/03/25 00:00 Ur Phencyclidine Scrn Negative ng/mL (Negative) 03/03/25 00:00 Ur Amphetamines Screen Negative ng/mL (Negative) 03/03/25 00:00 U Benzodiazepines Scrn Negative ng/mL (Negative) 03/03/25 00:00 Urine Cocaine Screen Negative ng/mL (Negative) 03/03/25 00:00 U Marijuana (THC) Screen Negative ng/mL (Negative) 03/03/25 00:00 Blood Type A Positive 03/03/25 00:00 Rho(D) Type Rh positive 03/03/25 00:00 Antibody Screen Negative 03/03/25 00:00 Vitals Last Vital Signs Temp 97.9 F 03/04/25 04:09 Pulse 86 03/04/25 04:09 Resp 16 03/04/25 04:09 BP 119/78 03/04/25 04:09 Pulse Ox 98 03/04/25 04:09 O2 Del Method Room Air 03/04/25 04:09 Results Labs OB ([facility]): Blood Type A Positive 03/03/25 Antibody Screen Negative 03/03/25 Hct, (36-47) 35.5 % L 03/03/25 Hgb, (11.27-16.99) 12.00 g/dL 03/03/25 Rho(D) Type Rh positive 03/03/25 Plt Count, (157-399) 227 10^3/cmm 03/03/25 Urine Opiates Screen, (Negative) Negative ng/mL 03/03/25 Ur Barbiturates Screen, (Negative) Negative ng/mL 03/03/25 Ur Phencyclidine Scrn, (Negative) Negative ng/mL 03/03/25 Ur Amphetamines Screen, (Negative) Negative ng/mL 03/03/25 U Benzodiazepines Scrn, (Negative) Negative ng/mL 03/03/25 Urine Cocaine Screen, (Negative) Negative ng/mL 03/03/25 U Marijuana (THC) Screen, (Negative) Negative ng/mL 03/03/25 Discharge Plan Discharge Patient Disposition: Home Condition: Stable Prescriptions: New ibuprofen 800 mg Tablet 800 mg PO TID Qty: 45 0RF Continued xqhxvjol-[id number] 1 mg Tablet 1 tab PO DAILY Discharge Order = DC NOW: Discharge Order (Routine); Ordered 03/04/25 Ordered By: Selvin Valentine Referrals: Selvin Valentine MD [Primary Care Provider, Family Practice] - 6 Weeks Discharge Diet: Usual diet Discharge Activity: Limit activity as instructed Patient Instructions: Opioid Safety, Patient Portal & Gilma Instructions Discharge Attestations UNIT CONTROL CLERK Time Spent in Discharge Care*: less than 30 min Coding Level of Care Code Acute Code for Chg Fwd Diagnoses 39 weeks gestation of Z3A.39 History of Z98.891
[2025-03-04] MEDS: HYDROcodone-acetaminophen 5-325 mg Tablet PO (09:15)
[2025-03-04 09:20] VITALS: BP 139/90; PULSE 87; RESP 16; O2SAT 99
[2025-03-04 10:33] VITALS: BP 130/88; PULSE 78; RESP 15; TEMP 36.6; O2SAT 99
--- NOTE | 2025-03-04 12:04 | ANE.PACU2 ---
Inpatient post-anesthesia follow up: Airway intact: Yes Vital signs: Temperature 98 F Pulse Rate 78 Respiratory Rate 15 Blood Pressure 130/88 Pulse Oximetry 99 Oxygen Delivery Me thod Room Air Oxygen Flow Rate Fraction of Inspir ed Oxygen Hydration adequate: Yes Nausea and vomiting: No Pain level: 1 Mental status: Baseline Epidural Start/End: Epidural Start Date: 03/03/25 Epidural Start Time: 05:30 Epidural End Date: 03/03/25 Epidural End Time: 10:04
[2025-03-04 14:19] LABS: High Risk PP Hemorrhage BBK Notified
== END 2025-03-04 11:40 | disposition home or self-care (01) | DRG 807 ==
PROVIDERS: Admitting Provider Family Medicine; PCP Family Medicine; Visit Provider Family Medicine
DX: O99.324 Drug use complicating childbirth (principal); Z37.0 Single live birth; F12.90 Cannabis use, unspecified, uncomplicated; O34.211 Maternal care for low transverse scar from previous cesarean delivery; N85.8 Other specified noninflammatory disorders of uterus; Z3A.39 39 weeks gestation of pregnancy; O99.344 Other mental disorders complicating childbirth; F32.A Depression, unspecified; F41.9 Anxiety disorder, unspecified
CPT/HCPCS: 36415; 51702; 59025; 59409; 80306; 83986; 85025; 85027; 86850; 86900; 99211; J2405; J2590; J2795; J7030; J7121; J9999